=== PATIENT | female | born 1970 | race Caucasian/White ===

== ENCOUNTER 2019-12-17 09:41 | Outpatient (CLI) | payer BC, SELFPAY ==
--- NOTE | 2019-12-17 11:00 | NEURO_ITS ---
Patient Number: [id number] Impression: # Complains of numbness of hands. # Mild left Carpal Tunnel Syndrome. # Right median neuropathy above the wrist. # No ulnar neuropathy. # Normal needle/EMG exam. Nerve Conduction Studies Anti Sensory Summary Table Stim Site NR Peak (ms) P-T Amp (?V) Site1 Site2 Delta-P (ms) Dist (cm) Gianluca (m/s) Left Median Anti Sensory (2-3nd Digit) Wrist 3.3 67.9 Wrist 2-3nd Digit 3.3 14.0 42 Wrist 3.5 72.0 Wrist 2-3nd Digit 3.3 14.0 42 Right Median Anti Sensory (2-3nd Digit) Wrist 2.8 11.7 Wrist 2-3nd Digit 2.8 14.0 50 Wrist 3.5 7.5 Wrist 2-3nd Digit 2.8 14.0 50 Left Radial Anti Sensory (Base 1st Digit) Wrist 1.6 45.2 Wrist Base 1st Digit 1.6 0.0 Right Radial Anti Sensory (Base 1st Digit) Wrist 1.8 28.7 Wrist Base 1st Digit 1.8 0.0 Left Ulnar Anti Sensory (5th Digit) Wrist 2.4 73.1 Wrist 5th Digit 2.4 14.0 58 Right Ulnar Anti Sensory (5th Digit) Wrist 2.7 48.8 Wrist 5th Digit 2.7 14.0 52 Motor Summary Table Stim Site NR Onset (ms) O-P Amp (mV) Site1 Site2 Delta-0 (ms) Dist (cm) Gianluca (m/s) Left Median Motor (Abd Poll Brev) Wrist 4.5 3.5 Elbow Wrist 4.6 26.0 57 Elbow 9.1 3.4 Right Median Motor (Abd Poll Brev) Wrist 3.1 4.0 Elbow Wrist 7.0 26.0 37 Elbow 10.1 1.9 Left Ulnar Motor (Abd Dig Minimi) Wrist 2.7 10.4 A Elbow Wrist 5.0 27.0 54 A Elbow 7.7 8.3 Right Ulnar Motor (Abd Dig Minimi) Wrist 2.4 4.8 A Elbow Wrist 5.3 27.0 51 A Elbow 7.7 4.3 F Wave Studies NR F-Lat (ms) L-R F-Lat (ms) Left Median (Mrkrs) (Abd Poll Brev) 29.12 2.11 Right Median (Mrkrs) (Abd Poll Brev) 31.23 2.11 Left Ulnar (Mrkrs) (Abd Dig Min) 28.32 0.98 Right Ulnar (Mrkrs) (Abd Dig Min) 29.30 0.98 EMG Side Muscle Nerve Root Ins Act Fibs Amp Dur Recrt Comment Right 1stDorInt Ulnar C8-T1 Nml Nml Nml Nml Nml Right Ext Indicis Radial (Post Int) C7-8 Nml Nml Nml Nml Nml Right Ext Digitorum Radial (Post Int) C7-8 Nml Nml Nml Nml Nml Right BrachioRad Radial C5-6 Nml Nml Nml Nml Nml Right PronatorTeres Median C6-7 Nml Nml Nml Nml Nml Right Abd Poll Brev Median C8-T1 Nml Nml Nml Nml Nml Left 1stDorInt Ulnar C8-T1 Nml Nml Nml Nml Nml Left Ext Indicis Radial (Post Int) C7-8 Nml Nml Nml Nml Nml Left Ext Digitorum Radial (Post Int) C7-8 Nml Nml Nml Nml Nml Left BrachioRad Radial C5-6 Nml Nml Nml Nml Nml Left PronatorTeres Median C6-7 Nml Nml Nml Nml Nml Left Abd Poll Brev Median C8-T1 Nml Nml Nml Nml Nml MTDD
== END 2019-12-17 09:42 | disposition home or self-care (01) ==
LOC: ANHNEURO 09:44
PROVIDERS: PCP Family Medicine; Visit Provider Orthopaedic Surgery
DX: M25.531 Pain in right wrist (principal); G56.02 Carpal tunnel syndrome, left upper limb; G56.12 Other lesions of median nerve, left upper limb
CPT/HCPCS: 95886; 95911

== ENCOUNTER 2020-04-14 07:30 | Outpatient (CLI) | payer BC, SELFPAY ==
--- NOTE | 2020-04-14 | ECHO_ITS ---
Patient Info Name: Reta Krishnan Age: 49 years : 1970 Gender: Female Ht: 63 in Wt: 238 lbs BSA: 2.25 m2 HR: 78 bpm BP: 127 / 91 mmHg Heart Rhythm: Sinus Rhythm Technical Quality: Good Exam Date: 04/14/2020 7:49 AM Exam Location: [facility] Patient Status: Outpatient Admit Date: 04/14/2020 Staff Ordering Physician: LatrellTy MD Blood And Plasma Laboratory Assistant: Milli Austin RDCS Attending Provider: Bishnu, Ty Ledezma MD Referring Physician: Bishnu CAMPOS; Exam Type: CA echo doppler color flow Study Info Indications I10 - Essential (primary) hypertension Complete two-dimensional, color flow and Doppler transthoracic echocardiogram is performed. Strain analysis performed. Summary 1. Complete two-dimensional, color flow and Doppler transthoracic echocardiogram is performed. 2. Global longitudinal strain is borderline at -17 %. 3. Strain analysis performed. 4. Left ventricular chamber dimension is mildly enlarged. 5. Left ventricular systolic function is normal, estimated at 55-60%. 6. There is mildly increased left ventricular wall thickness. 7. The left ventricular diastolic function is grade I diastolic dysfunction. 8. Left atrial chamber dimension is mildly enlarged. 9. There is mild mitral valve regurgitation. 10. There is mild tricuspid valve regurgitation. Left Ventricle Left ventricular chamber dimension is mildly enlarged. Left ventricular systolic function is normal, estimated at 55-60%. There is mildly increased left ventricular wall thickness. The left ventricular diastolic function is grade I diastolic dysfunction. Global longitudinal strain is borderline at -17 %. Right Ventricle Right ventricular chamber dimension is normal. Right ventricular systolic function is normal. Left Atria Left atrial chamber dimension is mildly enlarged. Right Atria Right atrial chamber dimension is normal. Atrial Septum Intact interatrial septum visualized by color flow imaging. Aortic Valve The aortic valve is trileaflet. There is no aortic valve sclerosis. There is no aortic valve stenosis. There is trace aortic valve regurgitation. Pulmonic Valve The pulmonic valve is normal. There is no pulmonic valve stenosis. There is trace pulmonic regurgitation. Mitral Valve The mitral valve has thickened leaflets. There is no mitral valve stenosis. There is mild mitral valve regurgitation. Tricuspid Valve The tricuspid valve leaflets are normal. There is no significant tricuspid valve stenosis. There is mild tricuspid valve regurgitation. No pulmonary hypertension, estimated pulmonary arterial systolic pressure is 33 mmHg. Pericardium/Pleural The pericardium appears normal. There is no pericardial effusion. Inferior Vena Cava Normal inferior vena cava with >50% collapse upon inspiration consistent with normal right atrial pressure, 10 mmHg. Aorta The aortic root size at the sinus of Valsalva is normal. Left Ventricular Outflow Tract Name Value Normal LVOT 2D LVOT Diameter 2.0 cm LVOT Doppler LVOT Peak Gradient 5 mmHg
== END 2020-04-14 07:31 | disposition home or self-care (01) ==
PROVIDERS: PCP Family Medicine; Visit Provider Family Medicine
DX: I10 Essential (primary) hypertension (principal); I51.7 Cardiomegaly; R93.1 Abnormal findings on diagnostic imaging of heart and coronary circulation
CPT/HCPCS: 93306

== ENCOUNTER 2020-09-19 10:06 | Outpatient (CLI) | payer BC, SELFPAY ==
--- NOTE | ~2020-09-19 | MR_ITS ---
EXAMINATION: MR cervical spine wo con EXAM DATE: 09/19/2020 11:00 INDICATION: Cervicalgia, radiculopathy down both arms. Headaches. TECHNIQUE: Multi-sequential, multiplanar MR images of the cervical spine were obtained without contra st. Axial T2, axial T2 MERGE sequence. Sagittal T1, T2, T2 fat saturation images also obtained. Com parison is made to prior examination from 09/19/2020. FINDINGS: There is mild disc disease C6-7. Vertebral body and disc heights are well-maintained. The vertebral bodies are aligned in the AP dimension. The spinal cord signal intensity and intrinsic mo rphology is normal. Cervicomedullary junction is normal in appearance. There are no suspicious marrow signal abnormalities. Paraspinal soft tissue is unremarkable. Level by level evaluation: C2-C3: Disc does not extend beyond the endplate margin. Uncovertebral joint arthropathy: None. Facet joint arthropathy: Mild bilateral. Neural foraminal stenosis: No stenosis. Central canal stenosis: No stenosis. C3-C4: Disc does not extend beyond the endplate margin. Uncovertebral joint arthropathy: None. Facet joint arthropathy: Mild to moderate bilateral. Neural foraminal stenosis: No stenosis. Central canal stenosis: No stenosis. C4-C5: Disc does not extend beyond the endplate margin. Uncovertebral joint arthropathy: Mild left. Facet joint arthropathy: Moderate left, mild to moderate right. Neural foraminal stenosis: No stenosis. Central canal stenosis: No stenosis. C5-C6: Disc does not extend beyond the endplate margin. Uncovertebral joint arthropathy: Mild left. Facet joint arthropathy: Mild bilateral. Neural foraminal stenosis: No stenosis. Central canal stenosis: No stenosis. C6-C7: There is a mild diffuse disc bulge. Uncovertebral joint arthropathy: Mild to moderate left, mild right. Facet joint arthropathy: Mild bilateral. Neural foraminal stenosis: Mild left. Central canal stenosis: Mild. C7-T1: Disc does not extend beyond the endplate margin. Uncovertebral joint arthropathy: Mild left. Facet joint arthropathy: Mild to moderate left, mild right. Neural foraminal stenosis: Mild left. Central canal stenosis: No stenosis. It is difficult to appreciate any significant interval change compared to 2017. IMPRESSION: Mild to moderate cervical spondylosis as detailed above. Reviewed, dictated and finalized at location A.
--- NOTE | ~2020-09-19 | XR_ITS ---
EXAMINATION: XR thoracic spine 2V DATE: 09/19/2020 10:25 INDICATION: Thoracic back pain TECHNIQUE: Two views of the thoracic spine are obtained. COMPARISON: None. FINDINGS: There is mild S-shaped curvature of the thoracic spine. Bone alignment is normal. There is no fracture. The vertebral body heights are maintained. There is mild loss of intervertebral disc spa ce height at multiple levels in the thoracic spine. Small degenerative osteophytes project from the a nterior endplates of multiple vertebral bodies. IMPRESSION: 1. Mild thoracic spondylosis without acute findings. Reviewed, dictated and finalized at location F.
--- NOTE | ~2020-09-19 | MR_ITS ---
EXAMINATION: MR lumbar spine wo con EXAM DATE: 09/19/2020 11:12 INDICATION: Low back pain. Lumbar radiculopathy. TECHNIQUE: Multi-sequential, multiplanar MR images of the lumbar spine were obtained without contrast . Sagittal T1, T2, T2 fat saturation images. Axial T2 weighted images. There is no prior study for comparison. FINDINGS: Moderate loss of the L5-S1 disc height with 2 mm retrolisthesis. Lumbar vertebral body heig hts and disc heights otherwise maintained and aligned. The conus medullaris terminates at the T12-L1 level and has normal signal intensity and morphology. Level by level evaluation: T12-L1: Disc does not extend beyond the endplate margin. Facet arthropathy: Mild bilateral. Neural foraminal stenosis: No stenosis. Central canal stenosis: No stenosis. L1-L2: Disc does not extend beyond the endplate margin. Facet arthropathy: Mild bilateral. Neural foraminal stenosis: No stenosis. Central canal stenosis: No stenosis. L2-L3: There is a mild diffuse disc bulge. Facet arthropathy: Mild. Neural foraminal stenosis: No stenosis. Central canal stenosis: No stenosis. L3-L4: There is a mild diffuse disc bulge. Facet arthropathy: Mild to moderate. Neural foraminal stenosis: Mild left. Central canal stenosis: Mild. L4-L5: There is a mild to moderate diffuse disc bulge. Facet arthropathy: Moderate. Neural foraminal stenosis: Mild to moderate bilateral. Central canal stenosis: Moderate. L5-S1: There is a mild to moderate diffuse disc bulge. Facet arthropathy: Mild to moderate. Neural foraminal stenosis: Moderate left, mild to moderate right. Central canal stenosis: Mild to moderate. IMPRESSION: Mild to moderate lower lumbar predominant spondylosis. Reviewed, dictated and finalized at location A.
== END 2020-09-19 10:07 | disposition home or self-care (01) ==
PROVIDERS: PCP Family Medicine; Visit Provider Nurse Practitioner Family
DX: M47.26 Other spondylosis with radiculopathy, lumbar region (principal); M47.892 Other spondylosis, cervical region; M47.894 Other spondylosis, thoracic region
CPT/HCPCS: 72070; 72141; 72148

== ENCOUNTER 2024-02-29 14:12 | Outpatient (CLI) | payer BC, SELFPAY ==
[2024-02-29 14:48] LABS: Magnesium 2.2 mg/dL (1.6-2.3); Phosphorus 3.8 mg/dL (2.5-4.5)
[2024-02-29 16:25] LABS: Vitamin D 25 Hydroxy 62.8 ng/mL
== END 2024-02-29 14:13 | disposition home or self-care (01) ==
LOC: ANHLAB 14:13
PROVIDERS: Visit Provider Internal Medicine
DX: E03.9 Hypothyroidism, unspecified (principal)
CPT/HCPCS: 36415; 82306; 83735; 83970; 84100

== ENCOUNTER 2024-03-08 12:04 | Outpatient (CLI) | payer BC, SELFPAY ==
[2024-03-08 13:10] LABS: Creatinine Urine 52.8 mg/dL
[2024-03-08 13:47] LABS: Creatinine 24 Hour Urine 1.3 gm/24 (0.8-1.8); Total Volume 24 Hour Urine 2525 ml
[2024-03-12 11:33] LABS: Total Volume 2525 mL
== END 2024-03-08 12:05 | disposition home or self-care (01) ==
LOC: ANHLAB 12:05
PROVIDERS: Visit Provider Internal Medicine
DX: E03.9 Hypothyroidism, unspecified (principal)
CPT/HCPCS: 81050; 82340; 82570

== ENCOUNTER 2024-08-29 11:43 | Outpatient (CLI) | payer BC, SELFPAY ==
--- OUTSIDE RECORDS SUMMARY | 2024-08-29 12:33 | XMS_ITS | Encounter Summary ---
Author Organization [facility] Address [address] [place] [address] Care Team Providers Care Tool And Die Repair Name Role Phone Papo Oleary Primary Care Provider + Encounter Details Date Type Department Care Team (Late Contact Info) Description 05/14/2024 FTL SOLAR Message [facility] Patient Accounts [address] [place] [address] [facility] Action Needed Social History Tobacco Use Types Packs/Day Years Used Date Smoking Tobacco: Never Smokeless Tobacco: Never Alcohol Use Standard Drinks/Week Comments Not Currently 0 (1 standard drink = 0.6 oz pur e alcohol) Comments No Sex and Gender Information Value Date Recorded Sex Assigned at Female 09/15/2023 1:19 PM CDT 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 Gender Identity Female 09/15/2023 1:19 PM CDT Sexual Orientation Straight 09/15/2023 1: 19 PM CDT documented as of this encounter Plan of Treatment Upcoming Encounters Date Type Department Care Team (Late Contact Info) Description 01/02/2025 2:00 PM CDT Office Visit [facility] Medical Group Multispecialty Care - [facility] [address] [facility], [address] [place] [phone] Aníbal Paredes MD [address] [place] [address] 01/22/2025 1:40 PM CDT Office Visit [facility] Medical Group [facility] - [place] [address] [place] [phone] Dorina Ramírez MD [address] [place] [address] documented as of this encounter Visit Diagnoses Not on filedocumented in this encounter Care Teams Tool And Die Repair Relationship Specialty Start Date End Date Papo Oleary PA [facility] [place] [address] PCP - General PHYSICIAN RELINER 12/25/23 documented as of this encounter
--- OUTSIDE RECORDS SUMMARY | 2024-08-29 12:33 | XMS_ITS | Encounter Summary ---
Author Organization [facility] Address [address] [place] [address] Care Team Providers Care Research Study Assistant Name Role Phone None, Provider Primary Care Provider Papo Jasmine Primary Care Provider + Encounter Details Date Type Department Care Team (Late st Contact Info) Description 10/04/2023 MyChart Message Enc [facility] [address] [phone] Dorina Ramírez MD [address] [place] [phone] MRIs Social History Tobacco Use Types Packs/Day Years Used Date Smoking Tobacco: Never Smokeless Tobacco: Never Alcohol Use Standard Drinks/Week Comments Not Currently 0 (1 standard drink = 0.6 oz pur e alcohol) Comments Unknown Sex and Gender Information Value Date Recorded Sex Assigned at Female 09/15/2023 1:19 PM CDT 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 Gender Identity Female 09/15/2023 1:19 PM CDT Sexual Orientation Straight 09/15/2023 1: 19 PM CDT documented as of this encounter Plan of Treatment Upcoming Encounters Date Type Department Care Team (Late st Contact Info) Description 01/02/2025 2:00 PM CDT Office Visit [facility] Multispecialty Care - [facility] [address] [facility], [address] [place] [phone] Aníbal Paredes MD 3 [place] [address] 01/22/2025 1:40 PM CDT Office Visit [facility] Medical [facility] Neurology Specialty Clinic - [address] [phone] Dorina Ramírez MD 3 [place] [address] documented as of this encounter Visit Diagnoses Not on filedocumented in this encounter Care Teams Research Study Assistant Relationship Specialty Start Date End Date None, Provider, PCP - General UNKNOWN PHYSICIAN SPECIALTY 08/25/23 12/24/23 Papo Oleary PA [facility] [place] [phone] PCP - General PHYSICIAN SLUBBER FRAME CHANGER 12/25/23 documented as of this encounter
--- OUTSIDE RECORDS SUMMARY | 2024-08-29 12:33 | XMS_ITS | Encounter Summary ---
Author Organization [facility] Address [address] [place] [address] Care Team Providers Care Sample Collector Name Role Phone Papo Oleary Primary Care Provider + Encounter Details Date Type Department Care Team (Late Contact Info) Description 05/20/2024 Prep for Procedure [facility] [place] [address] [phone] Ariane Ball MD [address] [place], [place] [phone] Social History Tobacco Use Types Packs/Day Years Used Date Smoking Tobacco: Never Smokeless Tobacco: Never Alcohol Use Standard Drinks/Week Comments Not Currently 0 (1 standard drink = 0.6 oz pur e alcohol) Comments No Sex and Gender Information Value Date Recorded Sex Assigned at Female 09/15/2023 1:19 PM CDT 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, [address] [place] [phone] Aníbal Paredes MD 3 [place] [address] 01/22/2025 1:40 PM CDT Office Visit [facility] Medical Group Neu[facility] Special[facility] Clinic [address] [phone] Dorina Ramírez MD 3 [place] [address] documented as of this encounter Visit Diagnoses Not on filedocumented in this encounter Care Teams Sample Collector Relationship Specialty Start Date End Date Papo Oleary PA [facility] [place] [address] PCP - General PHYSICIAN HOSPICE BEREAVEMENT COORDINATOR 12/25/23 documented as of this encounter
--- OUTSIDE RECORDS SUMMARY | 2024-08-29 12:33 | XMS_ITS | Encounter Summary ---
Author Organization [facility] Address [address] [place] [address] Care Team Providers Care Flyer Repairer Name Role Phone Papo Oleary Primary Care Provider + Encounter Details Date Type Department Care Team (Latest Contact Info) Description 07/29/2024 AdExtent Message Enc [facility] [place] [address] [phone] [facility]ost[facility], [facility] Provider [facility] Social History Tobacco Use Types Packs/Day Years Used Date Smoking Tobacco: Never Smokeless Tobacco: Never Alcohol Use Standard Drinks/Week Comments Not Currently 0 (1 standard drink = 0.6 oz pur e alcohol) Comments No Sex and Gender Information Value Date Recorded Sex Assigned at Female 09/15/2023 1:19 PM CDT 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 Gender Identity Female 09/15/2023 1:19 PM CDT Sexual Orientation Straight 09/15/2023 1: 19 PM CDT documented as of this encounter Plan of Treatment Upcoming Encounters Date Type Department Care Team (Late st Contact Info) Description 01/02/2025 2:00 PM CDT Office Visit [facility] Medical [facility] Multispecialty Care - [facility] [address] [facility], [address] [place] [phone] Aníbal Paredes MD 3 [place] [address] 01/22/2025 1:40 PM CDT Office Visit [facility] Medical Group Neurology Specialty Clinic - [address] [phone] Dorina Ramírez MD 3 [place] [address] documented as of this encounter Visit Diagnoses Not on filedocumented in this encounter Care Teams Flyer Repairer Relationship Specialty Start Date End Date Papo Oleary PA [facility] [place] [phone] PCP - General PHYSICIAN VULNERABILITY RESEARCHER 12/25/23 documented as of this encounter
--- OUTSIDE RECORDS SUMMARY | 2024-08-29 12:33 | XMS_ITS | Encounter Summary ---
Author Organization [facility] Address [address] [place] [address] Care Team Providers Care Lane Marker Installer Name Role Phone Papo Oleary Primary Care Provider + Encounter Details Date Type Department Care Team (Late st Contact Info) Description 05/20/2024 SuddenValueshart Message Enc [facility] Interventional [facility] [place] [address] [phone] Ariane Ball MD Three [facility] [address] [place], [place] [phone] Neck/Upper Back Social History Tobacco Use Types Packs/Day Years Used Date Smoking Tobacco: Never Smokeless Tobacco: Never Alcohol Use Standard Drinks/Week Comments Not Currently 0 (1 standard drink = 0.6 oz pur e alcohol) Comments No Sex and Gender Information Value Date Recorded Sex Assigned at Female 09/15/2023 1:19 PM CDT 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 Gender Identity Female 09/15/2023 1:19 PM CDT Sexual Orientation Straight 09/15/2023 1: 19 PM CDT documented as of this encounter Plan of Treatment Upcoming Encounters Date Type Department Care Team (Late st Contact Info) Description 01/02/2025 2:00 PM CDT Office Visit [facility] Medical Group Multispecialty Care - [facility] [address] [facility], [address] [place] [phone] Aníbal Paredes MD 3 [place] [address] 01/22/2025 1:40 PM CDT Office Visit [facility] Medical Group Neurology Specialty Clinic [address] [phone] Dorina Ramírez MD 3 [place] [address] documented as of this encounter Visit Diagnoses Not on filedocumented in this encounter Care Teams Lane Marker Installer Relationship Specialty Start Date End Date Papo Oleary PA [facility] [place] [address] PCP - General PHYSICIAN ENTRY PROCESSOR 12/25/23 documented as of this encounter
--- OUTSIDE RECORDS SUMMARY | 2024-08-29 12:33 | XMS_ITS | Clinical Summary ---
Author Organization [facility] Address [address] [place] [address] Phone Care Team Providers Care Potato Chip Fryer Name Role Phone Ty Sams MD Primary Care Provider [phone] Allergies No known active allergies Medications ergocalciferol (VITAMIN D2) 50,000 unit capsule Take 50,000 Units by mouth every 7 days. Active OTHER Provider please include Medication name, dose, route and frequency . Active ascorbic acid, vitamin C, (VITAMIN C) 500 mg tablet Take 500 mg by mouth daily. Active pregabalin (LYRICA) 100 mg Capsule Take 200 mg by mouth 3 times daily with meals . Active celecoxib (CeleBREX) 200 mg capsule Take 200 mg by mouth 2 times daily. Active diclofenac sodium (VOLTAREN) 1 % gel Apply to affected area 4 times daily. Activ e phentermine (ADIPEX P) 37.5 mg tablet TAKE 1 TABLET BY MOUTH ONCE DAILY 06/28/19 20 Active traMADol (ULTRAM) 50 mg tablet TAKE 1 TO 2 TABLETS BY MOUTH EVERY 6 HOURS NEEDED 06/08/20 19 Active cyclobenzaprin e (FLEXERIL) 5 mg Tablet cyclobenzaprine 5 mg tablet Active hydroCHLOROthi azide (MICROZIDE) 12.5 mg capsule Take 12.5 mg by mouth daily. Active tapentadoL (Nucynta) 100 mg tablet Take 50 mg by mouth. 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 Primary hypothyroidism 12/01/2017 Vitamin D deficiency 12/01/2017 Morbid obesity with body mass index of 40.0-49.9 12/01/2017 Encounters Date Type Department Care Team Description 07/30/2024 External Device Data [facility] ABSTRACTION Provider, Abstract 07/03/2024 External Device Data [facility] ABSTRACTION Provider, Abstract 07/03/2024 External Device Data [facility] ABSTRACTION Provider, Abstract 06/18/2024 External Device Data [facility] ABSTRACTION Provider, Abstract from Last 3 Months Family History Medical History Relation Name Comments High Cholesterol Father Hypertension Father Other Father chf Other Sister hypothyroid Relation Name Status Comments Father Sister Alive Social History Tobacco Use Types Packs/Day Years Used Date Smoking Tobacco: Never Smokeless Tobacco: Never Alcohol Use Standard Drinks/Week Comments Yes 0 (1 standard drink = 0.6 oz pur e alcohol) occasional Comments Unknown Sex and Gender Information Value Date Recorded Sex Assigned at Not on file 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 Gender Identity Not on file Sexual Orientation Not on file Last Filed Vital Signs Vital Sign Reading Time Taken Comments Blood Pressure 124/80 01/20/2020 10:32 AM CDT Pulse 84 01/20/2020 10:32 AM CDT Temperature - - Respiratory Rate - - Oxygen Saturation 96% 11/30/2018 9:45 AM CDT Inhaled Oxygen Concentration - - Weight 104.3 kg (230 lb) 01/20/2020 10:32 AM CDT Height 160 cm (5' 3 ) 01/20/2020 10:32 AM CDT Body Mass Index 40.74 01/20/2020 10:32 AM CDT Plan of Treatment Health Maintenance Due Date Last Done Comments Pre-Diabetes and Diabetes Screening 1970 DTAP/TDAP/TD VACCINES (1 - Tdap) 1987 HEPATITIS B VACCINES (1 of 3 - 19+ 3-dose series) 07/14 PAP SMEAR 1998 BREAST CANCER SCREENING 2008 COLORECTAL SCREENING 2013 Colorectal Cancer Screening 2013 FIT-DNA Q 3 years 2013 FIT/FOBT Q 1 year 2013 Flex Sig/CT Colonography Q 5 years 2013 ZOSTER VACCINE (1 of 2) 2018 INFLUENZA VACCINE (#1) 2024 Insurance [employer] Care Teams Potato Chip Fryer Relationship Specialty Start Date End Date Ty Sams MD PCP - General Family Practice 12/01/17
--- OUTSIDE RECORDS SUMMARY | 2024-08-29 12:33 | XMS_ITS | Clinical Summary ---
Author Organization [facility] Address [address] [place] [address] Care Team Providers Care Pulverizing And Sifting Operator Name Role Phone Papo Oleary Primary Care Provider + Allergies No known active allergies Medications calcium, elemental, 600 MG tablet Take 2 tablets (1,200 mg total) by mouth daily. Active celecoxib (CELEBREX) 200 MG capsule daily. Active Cetirizine HCl (ZYRTEC ALLERGY) 10 MG Cap Active vitamin D2, ergocalciferol, (DRISDOL) 1.25 mg capsule Take 1 capsule (50,000 Units total) by mouth once a week. Active folic acid (FOLVITE) 1 MG tablet daily. Active hydroCHLOROthia zide (MICROZIDE) 12.5 MG capsule daily. Acti ve levothyroxine (SYNTHROID) 100 MCG tablet Active Magnesium 500 MG Tab Active omeprazole (PRILOSEC) 20 MG capsule Active pramipexole (MIRAPEX) 0.125 MG tablet Active Tapentadol HCl (NUCYNTA) 100 MG Tab Take 1 tablet by mouth as needed. Daily prn Active tiZANidine (ZANAFLEX) 4 MG tablet Active vitamin C (ASCORBIC ACID) 1000 MG tablet Take 1 tablet (1,000 mg total) by mouth daily. Active liothyronine (CYTOMEL) 5 MCG Tab Take 2 tablets (10 mcg total) by mouth daily. Active Turmeric 500 MG Cap every 8 (eight) hours. Active gabapentin (NEURONTIN) 600 MG tablet Take 1 tablet (600 mg total) by mouth 3 (three) times daily. Active Active Problems Problem Noted Date Diagnosed Date Cervical facet joint syndrome 01/29/2024 Cervical radiculopathy 10/08/2023 Lumbar radiculitis 10/08/2023 Encounters Date Type Department Care Team Description 07/29/2024 MyChart Message Enc [facility] [place] [place] [address] [id number] Jostin [facility] Provider PAIN MANAGEMENT CLINIC 07/09/2024 Prep for Procedure [facility] [place] [address] [id number] Lila Patricia, SOFIYA 07/08/2024 Telephone [facility] [place] [address] [id number] Ariella Campo RN Follow Up (/) 07/05/2024 10:00 AM INTERNET SECURITY SPECIALIST Office Visit [facility] Neu[facility] Specialty Clinic [address] [phone] Dorina Ramírez MD Follow Up (Lumbar radiculitis) 07/05/2024 Travel from Last 3 Months Family History Medical History Relation Comments Stroke Maternal Grandmother Diabetes Sister Relation Status Comments Maternal Grandmother Sister Social History Tobacco Use Types Packs/Day Years Used Date Smoking Tobacco: Never Smokeless Tobacco: Never Tobacco Cessation:Counseling Given: No Alcohol Use Standard Drinks/Week Comments Not Currently 0 (1 standard drink = 0.6 oz pur e alcohol) Comments No Sex and Gender Information Value Date Recorded Sex Assigned at Female 09/15/2023 1:19 PM CDT Legal Sex Female 12:13 PM INTERNET SECURITY SPECIALIST Gender Identity Female 09/15/2023 1:19 PM CDT Sexual Orientation Straight 09/15/2023 1: 19 PM CDT Last Filed Vital Signs Vital Sign Reading Time Taken Comments Blood Pressure 148/96 07/05/2024 9:59 AM INTERNET SECURITY SPECIALIST Pulse 74 07/05/2024 9:59 AM INTERNET SECURITY SPECIALIST Temperature 36.5 C (97.7 F) 03/04/2024 12:51 PM CDT Respiratory Rate 18 03/04/2024 1:18 PM CDT Oxygen Saturation 97% 07/05/2024 9:59 AM INTERNET SECURITY SPECIALIST Inhaled Oxygen Concentration - - Weight 105.7 kg (233 lb) 07/05/2024 9:59 AM INTERNET SECURITY SPECIALIST Height 160 cm (5' 3 ) 07/05/2024 9:59 AM INTERNET SECURITY SPECIALIST Body Mass Index 41.27 07/05/2024 9:59 AM INTERNET SECURITY SPECIALIST Plan of Treatment Upcoming Encounters Date Type Department Care Team (Late st Contact Info) Description 01/02/2025 2:00 PM CDT Office Visit [facility] Multispecialty Care - [facility] [address] [facility], [address] [place] [address] Aníbal Paredes MD [address] [place] [address] 01/22/2025 1:40 PM CDT Office Visit [facility] Neurology Specialty Clinic - [address] [phone] Dorina Ramírez MD [address] [place] [address] Health Maintenance Due Date Last Done Comments Cervical Cancer Screening Pa p Smear (Age 30 to 64) Every 3 Years 1968 Colorectal Cancer Screening Colonoscopy (10 Years) 1968 Annual Physical 1971 Hepatitis C 1986 DTaP, Tdap and Td Vaccines ( 1 - Tdap) 1987 Hepatitis B Vaccines (1 of 3 - 19+ 3-dose series) 1987 Cervical Cancer Screening Pa p with HPV Testing (Age 30 to 64) Every 5 Years 1998 Cervical Cancer Screening with HPV 1998 Mammogram Screening 2008 Zoster Vaccines (1 of 2) 2018 COVID-19 Vaccine ( - 2023-2 5 season) 2024 Influenza Adult (#1) 2024 PHQ-2 (Physician Proctor) 06/12/2024 Meningococcal B Vaccine Aged Out No l onger eligible based on patient's age to complete this topic Meningococcal Vaccine Aged Out No karey ad eligible based on patient's age to complete this topic Pneumococcal Vaccine: Pediat rics (0 to 5 Years) and At-Risk Patients (6 to 64 Years) Aged Out No longer eligible b ased on patient's age to complete this topic RSV Immunizations Under 20 Months Aged Out No longer eligible based on patient's age to complete this topic Insurance [facility] Care Teams Pulverizing And Sifting Operator Relationship Specialty Start Date End Date Papo Oleary PA [facility] [place] [phone] PCP - General PHYSICIAN REFINERY OPERATOR VISBREAKING 12/25/23
--- OUTSIDE RECORDS SUMMARY | 2024-08-29 12:33 | XMS_ITS | Patient Health Record ---
Author Organization [facility] Address [address] [place], [place] [address] Care Team Providers Care Concrete Grinder Operator Name Role Phone Gordy Oleary Primary Care Provider Paige Allison Unavailable [phone] Gely Trammell Unavailable [phone] ALLERGIES No Known Allergies RESULTS Component Value Reference Range Notes AST (SGOT) Reviewed date:02/06/2024 10:42:13 AM Interpretation: Performing Lab:[facility] Phone - [phone], Director - [facility] Notes/Report: AST (SGOT) 28 0-40 IU/L Creatinine, Serum Reviewed date:02/06/2024 10:42:13 AM Interpretation: Performing Lab:[facility] Phone - [phone], Director - [facility] Notes/Report: Creatinine 0.71 0.57-1.00 mg/dL eGFR 100 >59 mL/min/1.73 ALT (SGPT) Reviewed date:02/06/2024 10:42:13 AM Interpretation: Performing [facility], Phone - [phone], Director - [facility] Notes/Report: ALT (SGPT) 42 0-32 IU/L CBC With Differential/Platel et Reviewed date:02/06/2024 10:42:13 AM Interpretation: Performing Lab[facility], Phone - [phone], Director - [facility] Notes/Report: WBC 6.0 3.4-10.8 x10E3/uL RBC 4.85 3.77-5.28 x10E6/uL Hemoglobin 13.2 11.1-15.9 g/dL Hematocrit 40.2 34.0-46.6 % MCV 83 79-97 fL MCH 27.2 26.6-33.0 pg MCHC 32.8 31.5-35.7 g/dL RDW 13.5 11.7-15.4 % Platelets 314 150-450 x10E3/uL Neutrophils 64 Not Estab. % Lymphs 26 Not Estab. % Monocytes 7 Not Estab. % Eos 2 Not Estab. % Basos 1 Not Estab. % Immature Cells Neutrophils (Absolute) 3.8 1.4-7.0 x10E3/uL Lymphs (Absolute) 1.5 0.7-3.1 x10E3/uL Monocytes(Absolute) 0.4 0.1-0.9 x10E3/uL Eos (Absolute) 0.1 0.0-0.4 x10E3/uL Baso (Absolute) 0.1 0.0-0.2 x10E3/uL Immature Granulocytes 0 Not Estab. % Immature Grans (Abs) 0.0 0.0-0.1 x10E3/uL NRBC Hematology Comments: AST (SGOT) Reviewed date:08/06/2024 07:35:11 AM Interpretation: Performing Lab:[facility] [place], [address] [place] [address], Phone - [phone], Director - [facility] Notes/Report: AST (SGOT) 16 0-40 IU/L Creatinine, Serum Reviewed date:08/06/2024 07:35:11 AM Interpretation: Performing Lab[facility] [address] [place] [address], Phone - [phone], Director - [facility] Notes/Report: Creatinine 0.65 0.57-1.00 mg/dL eGFR 103 >59 mL/min/1.73 ALT (SGPT) Reviewed date:08/06/2024 07:35:11 AM Interpretation: Performing Lab:[facility], [address] [facility], Phone - [phone], Director - [place] Notes/Report: ALT (SGPT) 24 0-32 IU/L CBC With Differential/Platel et Reviewed date:08/06/2024 07:35:11 AM Interpretation: Performing Lab:[facility] [place], [address] [facility], [place], Phone - [phone], Director - [place] Notes/Report: WBC 8.3 3.4-10.8 x10E3/uL RBC 5.06 3.77-5.28 x10E6/uL Hemoglobin 13.4 11.1-15.9 g/dL Hematocrit 41.1 34.0-46.6 % MCV 81 79-97 fL MCH 26.5 26.6-33.0 pg MCHC 32.6 31.5-35.7 g/dL RDW 13.6 11.7-15.4 % Platelets 331 150-450 x10E3/uL Neutrophils 72 Not Estab. % Lymphs 20 Not Estab. % Monocytes 5 Not Estab. % Eos 1 Not Estab. % Basos 1 Not Estab. % Immature Cells Neutrophils (Absolute) 6.0 1.4-7.0 x10E3/uL Lymphs (Absolute) 1.6 0.7-3.1 x10E3/uL Monocytes(Absolute) 0.4 0.1-0.9 x10E3/uL Eos (Absolute) 0.1 0.0-0.4 x10E3/uL Baso (Absolute) 0.1 0.0-0.2 x10E3/uL Immature Granulocytes 1 Not Estab. % Immature Grans (Abs) 0.0 0.0-0.1 x10E3/uL NRBC Hematology Comments: REASON FOR REFERRAL No Information MEDICATIONS Medication SIG (Take, Route, Frequency, Duration) Notes Start Date End Date Status traMADol 50 mg 1-2 tab(s) orally every 6 hours Active TiZANidine Hydrochloride 2 mg TAKE 1 TO 2 TABLETS BY MOUTH TWICE DAILY Active Nucynta 100 mg 1 tab(s) orally ever y 6 hours Active turmeric 500 mg 1 cap(s) orally thre e times a day Active Voltaren Gel - for upper bod y joint 1% APPLY 2 GRAMS PER JOINT TOPICALLY (HANDS/KNEES) FOUR TIMES DAILY Active gabapentin 300 mg 2 cap(s) orally 3 times a day Active celecoxib 200 mg 1 cap(s) orally once a day Active Vitamin D2 (obsolete) 50,000 intl units 1 cap(s) orally bid a week Active levothyroxine 100 mcg (0.1 mg) 1 tab(s) orally once a day Active hydroCHLOROthiazide 12.5 mg 1 cap(s) ora lly once a day Active Tylenol Active omeprazole 20 mg orally Act mark liothyronine 5 mcg 1 tab(s) orally once a day Active Calcium Active losartan Active folic acid 1 mg 1 tab(s) orally once a day Active SOCIAL HISTORY Tobacco Use: Social History Observation Description Date Details (start date - stop date) Never Smoker NA - NA Sex Assigned At : Social History Observation Description Sex Assigned At Unknown Tobacco Use: Question Answer Notes Smoking Status nonsmoker PROBLEMS Problem Type ICD Code Onset Dates Problem Status W/U Status Risk SNOMED Code Notes Problem Other penitentiary (current) drug therapy (Z79.899) Active confirmed 497256641 Problem Vitamin D deficiency (E55.9) Active confirmed Vitamin D deficiency (98144970) Problem Fibromyalgia (M79.7) Active confirmed 503510679 Problem Primary generalized (osteo)arthritis (M15.0) Active confirmed 355492349 Problem Never smoked cigarettes (Z78.9) Active confirmed 607564364 Problem Degenerative disc disease, lumbar (M51.36) Active confirmed 38636737 Problem 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) Active confirmed 81940502 Problem Paresthesia (R20.2) Active confirmed 27309348 Problem 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) Active confirmed 579284053 Problem Knee osteoarthritis (M17.9) Active confirmed Osteoarthritis of knee (412634592) Problem Fatigue, unspecified type (R53.83) Active confirmed 61226280 Problem Cervical neck pain with evidence of disc disease (M50.90) Active confirmed 828625620 VITAL SIGNS Heart Rate 79 /min 08/05/2024 Blood pressure diastolic 88 mm Hg 08/05/2024 Height 63 in 08/05/2024 Blood pressure systolic 127 mm Hg 08/05/2024 Weight 245 lbs 08/05/2024 BMI 43.40 kg/m2 08/05/2024 PROCEDURES Procedure Date Ordered Date Performed Result Body Sit e Joint Injection - knee, left 02/05/2024 N/A Joint Injection - knee, right 02/05/2024 N/A Joint Injection - knee, right 08/05/2024 N/A Encounters Encounter Location Date Provider Diagnosis [facility] [address] [place] [address], [address] [id number] 02/05/2024 Gely Cole Primary generalized (osteo)arthritis M15.0 ; Pain, joint, knee, right M25.561 ; Pain, joint, knee, left M25.562 ; Other penitentiary (current) drug therapy Z79.899 ; Fibromyalgia M79.7 ; Vitamin D deficiency E55.9 ; Fatigue, unspecified type R53.83 and Lee's thyroiditis E06.3 [facility] [address] [place] [address], [address] [id number] 08/05/2024 Gely Kelsey Primary generalized (osteo)arthritis M15.0 ; Pain, joint, knee, right M25.561 ; Pain, joint, knee, left M25.562 ; Other termite renewal inspector (current) drug therapy Z79.899 ; Fibromyalgia M79.7 ; Vitamin D deficiency E55.9 ; Fatigue, unspecified type R53.83 and Lee's thyroiditis E06.3 [facility] [address] [place] [address], [address] [id number] 02/06/2024 Paige Fuchs ASSESSMENTS Encounter Date Diagnosis Assessment Notes Treatment Notes Treatment Clinical Notes 02/05/2024 Pain, joint, knee, right (ICD-10 - M25.561) 02/05/2024 Primary generalized (osteo)arthritis (ICD-10 - M15.0) 08/05/2024 Pain, joint, knee, right (ICD-10 - M25.561) 08/05/2024 Primary generalized (osteo)arthritis (ICD-10 - M15.0) 02/05/2024 Pain, joint, knee, left (ICD-10 - M25.562) 08/05/2024 Pain, joint, knee, left (ICD-10 - M25.562) 02/05/2024 Other penitentiary (current) drug therapy (ICD-10 - Z79.899) 08/05/2024 Other penitentiary (current) drug therapy (ICD-10 - Z79.899) 02/05/2024 Fibromyalgia (ICD-10 - M79.7) 08/05/2024 Fibromyalgia (ICD-10 - M79.7) 02/05/2024 Vitamin D deficiency (ICD-10 - E55.9) 08/05/2024 Vitamin D deficiency (ICD-10 - E55.9) 02/05/2024 Fatigue, unspecified type (ICD-10 - R53.83) 08/05/2024 Fatigue, unspecified type (ICD-10 - R53.83) 02/05/2024 Lee's thyroiditis (ICD-10 - E06.3) 08/05/2024 Lee's thyroiditis (ICD-10 - E06.3) PLAN OF TREATMENT Pending Test Test Name Order Date X ray : Spines, lumbar- outside order X ray : Spines, lumbar- outside order AST (SGOT) 05/23/2022 AST (SGOT) 08/02/2021 Creatinine, Serum 05/23/2022 ALT (SGPT) 05/23/2022 ALT (SGPT) 08/02/2021 CBC With Differential/Platelet Sed Rate - Westergren 05/23/2022 C-Reactive Protein, Quant 05/23/2022 VITAMIN D, 25-HYDROXY, LC/MS/MS 05/23/20 22 Joint Injection - knee, left 08/23/2023 Joint Injection - knee, left 02/05/2024 X ray : Hand left- outside order 018 X ray : Hand right- outside order 2017 Joint Injection - knee, right 08/23/2023 Joint Injection - knee, right 05/23/2018 Joint Injection - knee, right 02/05/2024 Joint Injection - knee, right 08/05/2024 Inj-Toradol 05/23/2022 X ray : Knee, right 3 views- outside ord er 05/23/2018 X ray : Knee, right 3 views- outside ord er 08/07/2023 X ray : Knee, left, 3 views- outside ord er 08/07/2023 X ray : Knee, left, 3 views- outside ord er 05/23/2018 X ray : Hip, left- outside order 019 X ray : Hip, right- outside order 2018 X ray : Foot Left- outside order 018 X ray : Foot Right- outside order 2017 Lab slip given 05/23/2022 -Xray slip given 05/23/2018 -Xray slip given 07/17/2017 -Xray slip given 06/26/2017 X ray : Knee, right 2 views- outside ord er 06/26/2017 X ray : Knee, left 2 views- outside orde r 06/26/2017 PT Evaluate and treat 01/31/2022 NCS : Lower Extremities, Right 8 NCS : Upper Extremities, Right 8 Myofacial release 08/22/2018 Next Appt Details Provider Name:Gely Trammell, 0 02/03/2025 10:20:00 AM, [address] 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
[2024-08-29 13:03] LABS: Hematocrit 42.9 % (37.0-47.0); Hemoglobin 13.8 g/dL (12.0-15.0); Mean Corpuscular HGB Conc 32.2 g/dl (32-36); Mean Corpuscular Hemoglobin 27.2 pg (26-34); Mean Corpuscular Volume 84.6 fl (80-100); Mean Platelet Volume 9.5 fl (7.4-10.4); Platelet Count Result 299 k/mm3 (150-375); Red Blood Count 5.07 M/mm3 (4.2-5.4); Red Cell Distribution Width 13.2 % (11.5-14.5); White Blood Count 6.5 K/mm3 (4.5-10.0)
[2024-08-29 13:12] LABS: Hemoglobin A1C 5.3 % (<5.7)
[2024-08-29 13:23] LABS: Alanine Aminotransferase 30 U/L (6-35); Albumin Level 4.6 g/dL (3.5-5.1); Alkaline Phosphatase 78 U/L (38-126); Anion Gap 6 mmol/L (4-12); Aspartate Amino Transferase 25 U/L (14-36); Bilirubin,Total 0.7 mg/dL (0.2-1.3); Blood Urea Nitrogen 15 mg/dL (7-17); Calcium 10.5 mg/dL (8.4-10.2); Carbon Dioxide 34 mmol/L (22-30); Chloride 99 mmol/L (98-107); Cholesterol 177 mg/dL (0-200); Estimated Glomerular Filt Rate > 60; Glucose 89 mg/dL (65-110); HDL Direct 64 mg/dL; Potassium 4.2 mmol/L (3.4-5.0); Sodium 139 mmol/L (137-145); Triglycerides 74 mg/dL (<150)
[2024-08-29 13:34] LABS: LDL Cholesterol Direct 67 mg/dL
[2024-08-29 13:53] LABS: Thyroid Stimulating Hormone < 0.015 uIU/mL (0.465-4.680)
[2024-08-29 14:01] LABS: Free T4 Free Thyroxine 2.02 ng/dL (0.78-2.19); Vitamin D 25 Hydroxy 70.5 ng/mL
== END 2024-08-29 11:44 | disposition home or self-care (01) ==
LOC: ANHLAB 11:45
PROVIDERS: PCP Physician Assistant; Visit Provider Internal Medicine
DX: E03.9 Hypothyroidism, unspecified (principal); E53.8 Deficiency of other specified B group vitamins; E55.9 Vitamin D deficiency, unspecified; R53.83 Other fatigue
CPT/HCPCS: 36415; 80053; 80061; 82306; 82607; 83036; 84439; 84443; 85027

== ENCOUNTER 2024-09-04 09:37 | Outpatient (CLI) | payer BC, SELFPAY ==
--- NOTE | ~2024-09-04 | US_ITS ---
EXAMINATION: US thyroid DATE: 09/04/2024 09:50 INDICATION: Hypothyroidism TECHNIQUE: Multiple ultrasound images of the thyroid were obtained. COMPARISON: None. FINDINGS: The right thyroid lobe measures 4.7 x 1.4 x 1.9 cm. The left thyroid lobe measures 3.8 x 1.0 x 1.5 c m. No discrete nodules identified. There is heterogeneous echogenicity with coarsened echotexture an d increased vascular flow throughout the thyroid on color Doppler which could be seen in setting of t hyroiditis. IMPRESSION: 1. Heterogeneous thyroid with coarsened echotexture and increased vascular flow which could be seen i n the setting of thyroiditis. No discrete thyroid nodules. Reviewed, dictated and finalized at location B. IMPRESSION: 1. Heterogeneous thyroid with coarsened echotexture and increased vascular flow which could be seen in the setting of thyroiditis. No discrete thyroid nodules .
== END 2024-09-04 09:38 | disposition home or self-care (01) ==
LOC: GOSHIMG 09:38
PROVIDERS: PCP Physician Assistant; Visit Provider Internal Medicine
DX: E03.9 Hypothyroidism, unspecified (principal)
CPT/HCPCS: 76536

== ENCOUNTER 2024-10-07 11:49 | Outpatient (CLI) | payer BC, SELFPAY ==
[2024-10-07 12:23] LABS: Alanine Aminotransferase 25 U/L (6-35); Alkaline Phosphatase 75 U/L (38-126); Anion Gap 2 mmol/L (4-12); Aspartate Amino Transferase 21 U/L (14-36); Bilirubin,Total 0.6 mg/dL (0.2-1.3); Blood Urea Nitrogen 15 mg/dL (7-17); Calcium 9.1 mg/dL (8.4-10.2); Carbon Dioxide 33 mmol/L (22-30); Chloride 101 mmol/L (98-107); Estimated Glomerular Filt Rate > 60; Glucose 101 mg/dL (65-110); Sodium 136 mmol/L (137-145)
[2024-10-07 12:46] LABS: Free T4 Free Thyroxine 1.13 ng/dL (0.78-2.19)
--- OUTSIDE RECORDS SUMMARY | 2024-10-07 13:45 | XMS_ITS | Clinical Summary ---
Author Organization [facility] Address [address] [place] [address] Phone Care Team Providers Care Central Processing Technician Name Role Phone Ty Sams MD Primary Care Provider [phone] Allergies No known active allergies Medications ergocalciferol [...] on file Legal Sex Female 12:40 PM PACKAGING OPERATOR Gender Identity Not on file Sexual Orientation [...] of 3 - 19+ 3-dose series) 07/14 HPV/Cotest (21-29) 1989 CERVICAL CANCER SCREENING 1998 HPV/Cotest (30-65) 1998 PAP SMEAR 1998 BREAST CANCER SCREENING 2008 COLORECTAL SCREENING 2013 Colorectal Cancer Screening 2013 FIT-DNA Q 3 years 2013 FIT/FOBT Q 1 year 2013 Flex Sig/CT Colonography Q 5 years 2013 ZOSTER VACCINE (1 of 2) 2018 INFLUENZA VACCINE (#1) 2024 Insurance Care Teams Central Processing Technician Relationship Specialty Start Date End Date Ty Sams MD PCP - General Family Practice 12/01/17
--- OUTSIDE RECORDS SUMMARY | 2024-10-07 13:45 | XMS_ITS | Encounter Summary ---
Author Organization [facility] Address [address] [place] [address] Care Team Providers Care Hand Stitcher Name Role Phone None, Provider Primary Care Provider Papo Jasmine Primary Care Provider + Encounter Details Date Type Department Care Team (Late st Contact Info) Description 10/04/2023 MyChart Message Enc [facility] Neurology Specialty Clinic [address] [phone] Dorina Ramírez MD [address] [place] [phone] MRIs Social History Tobacco Use Types Packs/Day Years Used Date Smoking Tobacco: Never Smokeless Tobacco: Never Alcohol Use Standard Drinks/Week Comments Not Currently 0 (1 standard drink = 0.6 oz pur e alcohol) Comments Unknown Sex and Gender Information Value Date Recorded Sex Assigned at Female 09/15/2023 1:19 PM CDT Legal Sex Female 12:13 PM PRACTICAL NURSE CLINICAL COORDINATOR Gender Identity Female 09/15/2023 1:19 PM CDT Sexual Orientation Straight 09/15/2023 1: 19 PM CDT documented as of this encounter Plan of Treatment Upcoming Encounters Date Type Department Care Team (Late st Contact Info) Description 01/02/2025 2:00 PM CDT Office Visit [facility] Multispecialty Care - [facility] [address] [facility], [address] [place] [phone] Aníbal Paredes MD [address] [place] [address] 01/22/2025 1:40 PM CDT Office Visit [facility] Neurology Specialty Clinic - [address] [phone] Dorina Ramírez MD [address] [place] [address] documented as of this encounter Visit Diagnoses Not on filedocumented in this encounter Care Teams Hand Stitcher Relationship Specialty Start Date End Date None, Provider, PCP - General UNKNOWN PHYSICIAN SPECIALTY 08/25/23 12/24/23 Papo Oleary PA [facility] [place] [phone] PCP - General PHYSICIAN SUPERVISOR HARD CANDY 12/25/23 documented as of this encounter
--- OUTSIDE RECORDS SUMMARY | 2024-10-07 13:45 | XMS_ITS | Clinical Summary ---
Author Organization [facility] Address [address] [place] [address] Care Team Providers Care Winding Department Supervisor Name Role Phone Papo Oleary Primary Care [...] Date Type Department Care Team Description 07/29/2024 Jessicaharsylvia Message Enc [facility] Interventional [place] [address] [phone] [facility] Provider PAIN MANAGEMENT CLINIC 07/09/2024 Prep for Procedure [facility] Interventional [facility] [place] [address] [phone] Lila Patricia, ACID POLYMERIZATION OPERATOR from Last 3 Months Family History Medical [...] PM CDT Legal Sex Female 12:13 PM DOCUMENT CONTROL ASSOCIATE Gender Identity Female 09/15/2023 1:19 PM CDT Sexual Orientation Straight 09/15/2023 1: 19 PM CDT Last Filed Vital Signs Vital Sign Reading Time Taken Comments Blood Pressure 148/96 07/05/2024 9:59 AM DOCUMENT CONTROL ASSOCIATE Pulse 74 07/05/2024 9:59 AM DOCUMENT CONTROL ASSOCIATE Temperature 36.5 C (97.7 F) 03/04/2024 12:51 PM CDT Respiratory Rate 18 03/04/2024 1:18 PM CDT Oxygen Saturation 97% 07/05/2024 9:59 AM DOCUMENT CONTROL ASSOCIATE Inhaled Oxygen Concentration - - Weight 105.7 kg (233 lb) 07/05/2024 9:59 AM DOCUMENT CONTROL ASSOCIATE Height 160 cm (5' 3 ) 07/05/2024 9:59 AM DOCUMENT CONTROL ASSOCIATE Body Mass Index 41.27 07/05/2024 9:59 AM DOCUMENT CONTROL ASSOCIATE Plan of Treatment Upcoming Encounters Date Type Department Care Team (Late st Contact Info) Description 01/02/2025 2:00 PM CDT Office Visit [facility] Mult[facility]pecialty Care - [facility] [address] [facility], [address] [place] [address] Aníbal Paredes MD [address] [place] [address] 01/22/2025 1:40 PM CDT Office Visit [facility] Neurology Specialty Clinic - [address] [phone] Dorina Ramírez MD [address] [place], [place] [phone] Health Maintenance Due Date Last Done Comments [...] Screening with HPV 1998 Mammogram Screening 2008 Pneumococcal Vaccine: 50+ Ye ars (1 of 1 - PCV) 2018 Zoster Vaccines (1 of 2) 2018 COVID-19 Vaccine ( - 2023-2 5 season) 2024 PHQ-2 (Physician [place]) 06/12/2024 Meningococcal B Vaccine Aged Out No l onger eligible based on patient's age to complete this topic Meningococcal Vaccine Aged Out No karey ad eligible based on patient's age to complete this topic RSV Immunizations Under 20 Months Aged Out No longer eligible based on patient's age to complete this topic Insurance [facility] Care Teams Winding Department Supervisor Relationship Specialty Start Date End Date Papo Oleary PA [address] [place] [address] [place] [address] PCP - General PHYSICIAN SWITCHBOARD WIRER 12/25/23
--- OUTSIDE RECORDS SUMMARY | 2024-10-07 13:46 | XMS_ITS | Encounter Summary ---
Author Organization [facility] Address [address] [place] [address] Care Team Providers Care Edi Analyst Name Role Phone Papo Oleary Primary Care Provider + Encounter Details Date Type Department Care Team (Late st Contact Info) Description 05/20/2024 eduplanet KKhart Message Enc [facility] [place] [address] [id number] Ariane Ball MD Three [facility] [address] [place], [place] [phone] Neck/Upper Back Social History Tobacco Use Types Packs/Day Years Used Date Smoking Tobacco: Never Smokeless Tobacco: Never Alcohol Use Standard Drinks/Week Comments Not Currently 0 (1 standard drink = 0.6 oz pur e alcohol) Comments No Sex and Gender Information Value Date Recorded Sex Assigned at Female 09/15/2023 1:19 PM CDT Legal Sex Female 12:13 PM AUTO COLLISION REPAIR INSTRUCTOR Gender Identity Female 09/15/2023 1:19 PM CDT Sexual Orientation Straight 09/15/2023 1: 19 PM CDT documented as of this encounter Plan of Treatment Upcoming Encounters Date Type Department Care Team (Late st Contact Info) Description 01/02/2025 2:00 PM CDT Office Visit [facility] Care - [facility] [address] [facility], [address] [place] [phone] Aníbal Paredes MD [address] [place] [address] 01/22/2025 1:40 PM CDT Office Visit [facility] [address] [phone] Dorina Ramírez MD [address] [place] [address] documented as of this encounter Visit Diagnoses Not on filedocumented in this encounter Care Teams Edi Analyst Relationship Specialty Start Date End Date Papo Oleary PA [facility] [place] [phone] PCP - General PHYSICIAN WAXER FLOOR 12/25/23 documented as of this encounter
--- OUTSIDE RECORDS SUMMARY | 2024-10-07 13:46 | XMS_ITS | Encounter Summary ---
Author Organization [facility] Address [address] [place] [id number] Care Team Providers Care Slot Operations Director Name Role Phone Papo Oleary Primary Care Provider + Encounter Details Date Type Department Care Team (Late Contact Info) Description 05/20/[address] 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 Gender Identity Female 09/15/2023 1:19 PM CDT Sexual Orientation Straight 09/15/2023 1: 19 PM CDT documented as of this encounter Plan of Treatment Upcoming Encounters Date Type Department Care Team (Late st Contact Info) Description 01/02/2025 2:00 PM CDT Office Visit [facility] Multispecialty Care - [facility] [address] [facility], [address] [place] [phone] Aníbal Paredes MD [address] [place] [address] 01/22/2025 1:40 PM CDT Office Visit [facility] [address] [phone] Dorina Ramírez MD [address] [place] [address] documented as of this encounter Visit Diagnoses Not on filedocumented in this encounter Care Teams Slot Operations Director Relationship Specialty Start Date End Date Papo Oleary PA [facility] [place] [address] PCP - 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
--- OUTSIDE RECORDS SUMMARY | 2024-10-07 13:46 | XMS_ITS | Data Portability ---
Author Organization [place] [facility], Main Office Address [address] [place] [id number] Assessment No assessment recorded. Plan of Treatment Reminders Order Date Submit Date Provider Last Modified By Organization Details Last Modified Time Details Appointments Follow Up 15 2024 09:30A M CHIKA Morlilo Not available Not available Not available Lab gamma-glu tamyl transfera se (ggt), serum 2023 024 [email or web address] Not available 04/02/2024 17:12:25 hepatitis panel (A+B+C), acute, serum 2023 024 [email or web address] Not available 04/02/2024 17:12:25 amylase, serum or plasma 2023 024 [email or web address] Not available 04/02/2024 17:12:25 CMP, serum or plasma 2023 024 Not available 04/02/2024 17:12:25 hepatitis C virus Ab, serum 2023 024 DYLAN Not available 03/26/2024 08:23:16 lipid panel, serum 2023 024 DYLAN Not available 11/10/2023 17:25:35 CMP, serum or plasma 2023 024 [email or web address] Not available 11/20/2023 10:24:40 HbA1c (hemoglob in A1c), blood 2023 024 DYLAN Not available 11/10/2023 16:41:23 vitamin B12 + folate, serum or blood 2023 024 [email or web address] Not available 11/20/2023 10:24:39 vitamin D, 25-hydrox y, total, serum 2023 024 [email or web address] Not available 11/20/2023 10:24:40 PTH (parathyr oid hormone), intact, serum or plasma 2023 024 Not available 11/20/2023 10:24:39 calcium, ionized, blood 2023 024 [email or web address] Not available 11/20/2023 10:24:39 phosphoru s, serum or plasma 2023 024 [email or web address] Not available 11/20/2023 10:24:39 TSH, serum or plasma 2023 024 [email or web address] Not available 11/20/2023 10:24:39 T4, free, serum 2023 024 [email or web address] Not available 11/20/2023 10:24:39 T3, free, serum or plasma 2023 024 [email or web address] Not available 11/20/2023 10:24:39 thyroglob ulin Ab, serum 2023 DYLAN Not available 11/13/2023 17:17:05 thyroid peroxidas e (tpo) Ab, serum 2023 024 DYLAN Not available 11/13/2023 17:17:05 Referral gynecolog ist referral - Needs a PAP smear. Please call patient to schedule an appointme nt. Thank you 2023 [email or web address] Priscilla Colmenares DO, [address], [place], [address], 12/08/2023 08:36:46 Procedures None recorded. Surgeries None recorded. Imaging US, liver 2023 [facility], [address] [place] [address] , [place], [address], 04/02/2024 11:05:53 Medication Orders Zepbound 2.5 mg/0.5 mL subcutane ous pen injector 2024 025 [facility], [address] [place] [address], [id number], 09/23/2024 11:30:00 Depo-Medr ol 80 mg/mL suspensio n for injection 2024 025 iedshaw Not available 09/23/2024 11:57:36 prednison e 20 mg tablet 2024 025 [facility], [address] [place] [address], [id number], 09/23/2024 11:26:29 gabapenti n 300 mg capsule 2024 025 [facility] [address], [address] [place] [address], [address], 06/25/2024 11:50:30 Depo-Medr ol 80 mg/mL suspensio n for injection 2024 025 iedshaw Not available 09/23/2024 11:05:04 prednison e 20 mg tablet [address] [facility], [address] [place] [address], [address], 09/23/2024 11:05:12 Nucynta ER 50 mg tablet,ex tended release 2023 024 [facility], [address] [place] [address], [id number], 03/25/2024 12:01:38 gabapenti n 300 mg capsule 2023 024 [facility], [address] [place] [address], [address], 11/10/2023 10:13:26 hydrochlo rothiazid e 12.5 mg capsule 2023 024 [facility], [address] [place] [address], [address], 11/10/2023 10:18:34 losartan 25 mg tablet 2023 024 [facility], [address] [place] [address], [address], 11/10/2023 10:18:33 pramipexo le 0.125 mg tablet 2023 024 [facility], [address] [place] [address], [address], 08/08/2023 10:06:26 levothyro xine 100 mcg tablet 2023 024 [facility], [address] [place] [address], [address], 08/08/2023 10:03:21 Patient TargetsNo targets recorded. Patient Instructions Encounter Date Encounter Id Patient Instructions Last Modified By Organization Details Last Modified Time 03/25/2024 [id number] recheck BP at home , let us know if still high, usually normal at home [email or web address] Not available 04/18/2024 11:55:57 06/25/2024 [id number] recheck BP at home , she will call us if it is high ; it is always normal at home [email or web address] Not available 07/02/2024 15:07:49 09/23/2024 [id number] reviewed salty foods to avoid . 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 Please call patient to schedule an appointment. Thank you Referring Physician: Papo Oleary, Family Medicine, Encounter Date: 11/10/2023 Results Created Date Observation Date Name Description Value Unit Range Abnormal Flag Note LastModifiedBy Organization Detail LastModifiedTime 04/02/2004/02/2024 US, liver No observ ation [facility] ed[facility] [address] [place], [address], 05/17/2024 10:36:24 09/06/19 25 09/04/2024 imagi ng/di mitzyos tic resul t No observ ation record ed. [facility] [address], [place], [address], 09/05/2024 08:55:24 Result Notes None recorded. Problems Name Problem SNOMED Code Status Onset Date Resolution Date Notes Provider Name and Address Organization Details Recorded Time Menopause Active 2022 Not Available [facility] 3 00:27:32 Weight gain 9054786 Active 2022 Not Available [facility] 3 00:27:32 Chronic low back pain 201155054 Active 2022 Not Available [facility] 3 00:27:32 Restless legs 44081117 Active 2022 Not Available [facility] 3 00:27:32 Primary hyperpara thyroidis m 71761488 Active 2022 Ariella Segovia MD [address], [address], [place], [address] , [facility] 3 13:14:02 Pain of bilateral thighs 93222755187 080780 Active 2022 CHIKA Morillo [address], [address], [place], [address] , [facility] 3 11:43:54 Fibromyal moriah 881664569 Active 2022 CHIKA Morillo [address], [address], [place], [address] , [facility] 3 11:47:41 Screening for malignant neoplasm of breast Active 2022 CHIKA Morillo [address], [address], [place], [address] , [facility] 3 11:51:43 Burning feet 09163186 Active 2023 CHIKA Morillo [address], [address], [place], [address] , [facility] 4 10:12:16 Adult health examinati on Active 2023 CHIKA Morillo [address], [address], [place], [address] , [facility] 4 10:21:23 Screening for malignant neoplasm of cervix Active 2023 CHIKA Morillo [address], [address], [place], [address] , [facility] 4 10:24:20 Liver enzymes level above reference range 649994785 Active 2023 CHIKA Morillo [address], [place], [address] , [facility] 4 11:58:44 Right side sciatica 66401543349 9101 Active 2024 CHIKA Morillo [address], [address], [place], [address] , [facility] 5 11:51:18 Obesity 978593227 Active 2024 CHIKA Morillo [address], [place], [address] , [facility] 5 11:28:06 Diverticu litis of colon 022932219 Active Not Available [facility] 3 00:27:32 Acute sinusitis 07480040 Active Not Available [facility] 3 00:27:32 Thyroid nodule 422852863 Active 2021 Not Available [facility] 3 00:27:32 Increased blood pressure 14074166 Active Not Available [facility] 3 00:27:32 Acute sciatica 272181762 Active Not Available [facility] 3 00:27:32 Current tear of medial cartilage AND/OR meniscus of knee Active 2018 Not Available [facility] 3 00:27:32 Knee pain Completed 201803/19/2019 Not Available [facility] 3 04:44:53 Knee pain Active 2018 Not Available [facility] 3 00:27:32 Vitamin D deficienc y 60030109 Active Not Available [facility] 3 00:27:32 Sinusitis 12062505 Active Not Available [facility] 3 00:27:32 Hypothyro idism 00583687 Active Not Available [facility] 3 00:27:32 Essential hypertens ion 81672682 Active 2021 Not Available [facility] 3 00:27:32 Vitamin B12 deficienc y (non anemic) 65507980 Active 2021 Not Available [facility] 3 00:27:32 Hypercalc emia 14509437 Active 2021 Not Available [facility] 3 00:27:32 Muscle pain 05828773 Active Not Available [facility] 3 00:27:32 Fatigue 34431355 Active 2021 Not Available [facility] 3 00:27:32 Problem Notes None recorded. Procedures Surgical History Date Name Laterality Status Provider Name and Address Organization Details Recorded Time 05/29/20 mammography completed Leticia Graf RN [place] - [place] [employer] 06/22/2023 12:31:59 Elbow arthroscopy/corby radha completed Not Available [facility] 08/10/2022 04:41:02 Cyst Removal completed [facility]/10[facility]2022 04:41:02 Carpal tunnel completed Not Available [facility] 08/10/2022 04:41:02 Knee completed Not Available [facility] 06/2022 04:41:02 Imaging Results Imaging Date Name Status LastModified by Organiz ation Details LastModified Time 04/02/2024 US, liver completed [facility] [address] [place], [address], 05/17/2024 10:36:24 09/04/2024 imaging/diag nostic result active [facility] [address] [facility] [facility] [address], [place], [address], 09/05/2024 08:55:24 Procedure Notes None recorded. Medical Equipment None Reported. Allergies No known drug allergies Medications Name Sig Start Date Stop Date Status Note LastModified by Organization Details LastModified Time losartan 50 mg tablet TAKE 1 TABLET BY MOUTH ONCE DAILY IN THE MORNING 03/25 completed Not Available Not Available Not Available celecoxib 200 mg capsule TAKE 1 CAPSULE BY MOUTH TWICE DAILY active Not Available Not Available No t Available Augmentin 875 mg-125 mg tablet Take 1 tablet every 12 hours by oral route for 10 days. 11/08 completed Not Available Not Available Not Available ropinirol e 1 mg tablet TAKE 1 TABLET BY MOUTH ONCE DAILY AT BEDTIME 03/21 completed Not Available Not Available Not Available tizanidin e 2 mg tablet TAKE 1 TO 2 TABLETS BY MOUTH TWICE DAILY 08/08 completed Not Available Not Available Not Available etodolac 300 mg capsule TAKE 1 CAPSULE BY MOUTH TWICE DAILY 10/28 completed Not Available Not Available Not Available tizanidin e 4 mg tablet Take 1 tablet by mouth three times daily as needed active Not Available Not Available No t Available sumatript an 100 mg tablet TAKE 1 TABLET BY MOUTH TWICE DAILY NEEDED FOR MIGRAINE . TAKE 1 TABLET AT ONSET OF SYMPTOMS . MAY TAKE 1 TABLET 2 HOURS LATER. MAX DOSE OF 2 TABLETS IN 24 HOUR PERIOD 11/09 completed Not Available Not Available Not Available hydrocodo ne 5 mg-acetam inophen 325 mg tablet Take 1 tablet twice a day by oral route as needed for 3 days. 11/09 completed Not Available Not Available Not Available meloxicam 15 mg tablet 01/04 completed Not Available Not Available Not Available prednison e 20 mg tablet Take 2 tabs PO twice daily for 2 days; 1 tab PO twice daily for 5 days; 1/2 tab PO twice daily for 2 days; 1/2 tab PO once for 1 day. TAKE 2ND DOSE EVERYDAY AT NOON-10 DAY COURSE 2024 active Not Available Not Available Not Avai lable Zithromax Z-Arron 250 mg tablet Take 2 TABLET EVERY DAY by oral route for 1 day. Than 1 tablet for 4 days 09/01 completed Not Available Not Available Not Available penicilli n V potassium 500 mg tablet 05/15 completed Not Available Not Available Not Available metronida zole 500 mg tablet active Not Available Not Available No t Available phentermi ne 37.5 mg tablet Take 1 tablet by mouth once daily 10/14 completed Not Available Not Available Not Available ciproflox acin 500 mg tablet active Not Available Not Available No t Available liothyron ine 5 mcg tablet TAKE 1 TABLETS BY MOUTH IN THE MORNING AND 1 IN THE EVENING active Not Available Not Available No t Available tramadol 50 mg tablet TAKE 1 TO 2 TABLETS BY MOUTH EVERY 6 HOURS NEEDED active Not Available Not Available No t Available Depo-Medr ol 80 mg/mL suspensio n for injection Take 1 mL by injectio n route. 2024 active Not Available Not Available Not Avai lable meloxicam 7.5 mg tablet active Not Available Not Available Not Available levothyro xine 100 mcg tablet Take 1 tablet every day by oral route. active Not Available Not Available No t Available Zofran 4 mg tablet Take 1 tablet every 8 hours by oral route for 30 days. 05/16 completed Not Available Not Available Not Available levothyro xine 88 mcg tablet TAKE 1 TABLET BY MOUTH ONCE DAILY 11/09 completed Not Available Not Available Not Available amoxicill in 875 mg tablet 02/21 completed Not Available Not Available Not Available Kenalog 10 mg/mL suspensio n for injection In office injectio n administ ered by the provider 09/01 completed [facility]: 0003-049 4-20 Not Available Not Available Not Available dexametha sone 1 mg tablet TAKE 1 TABLET BY MOUTH AT 10PM THE NIGHT BEFORE 8 AM CORTISOL 11/09 completed Not Available Not Available Not Available benzonata te 100 mg capsule Take 1 capsule 3 times a day by oral route. 02/21 completed Not Available Not Available Not Available cyanocoba bekah (vit B-12) 1,000 mcg/mL injection solution INJECT 1 ML ONCE A WEEK SUBCUTAN EOUSLY IN THE MORNING 10/14 completed Not Available Not Available Not Available levothyro xine 125 mcg tablet 05/15 completed Not Available Not Available Not Available losartan 25 mg tablet Take 1 tablet every day by oral route in the morning for 30 days. active Not Available Not Available No t Available hydrochlo rothiazid e 12.5 mg capsule Take 1 capsule by mouth once daily active Not Available Not Available No t Available pramipexo le 0.125 mg tablet Take 1 tablet every day by oral route at bedtime for 30 days. active Not Available Not Available No t Available gabapenti n 300 mg capsule Take 2 capsules 3 times a day by oral route for 30 days. active Not Available Not Available No t Available omeprazol e 20 mg capsule,d elayed release Take 1 capsule by mouth once daily active Not Available Not Available No t Available folic acid 1 mg tablet TAKE 1 TABLET BY MOUTH ONCE DAILY active Not Available Not Available No t Available insulin syringe U-100 with needle 1 mL 31 gauge x 5/16 USE TO INJECT B12 SUBCUTAN EOUSLY ONCE WEEKLY FOR 90 DAYS 10/28 completed Not Available Not Available Not Available cyanocoba bekah (vit B-12) 1,000 mcg sublingua l tablet Place 1 tablet every day by sublingu al route for 30 days. 10/14 completed Not Available Not Available Not Available Synthroid 112 mcg tablet Take 1 tablet every day by oral route in the morning for 90 days. 07/25 completed Not Available Not Available Not Available ergocalci ferol (vitamin D2) 1,250 mcg (50,000 unit) capsule TAKE 2 CAPSULES BY MOUTH ONCE A WEEK 2024 active Not Available Not Available Not Avai lable clobetaso l 0.05 % topical ointment 05/17 completed Not Available Not Available Not Available methylpre dnisolone 4 mg tablets in a dose pack TAKE BY MOUTH DIRECTED ON INSIDE OF PACKAGE 07/26 completed Not Available Not Available Not Available metaxalon e 800 mg tablet TAKE 1 TABLET BY MOUTH 4 TIMES DAILY NEEDED 02/13 completed Not Available Not Available Not Available Vitamin D3 25 mcg (1,000 unit) capsule Take 1 unit every day by oral route. 08/29 completed Not Available Not Available Not Available cyclobenz aprine 5 mg tablet TAKE 1 TO 2 TABLETS BY MOUTH TWICE DAILY NEEDED FOR 30 DAYS active Not Available Not Available No t Available topiramat e 50 mg tablet Take 1 tablet every day by oral route. 10/14 completed Not Available Not Available Not Available duloxetin e 30 mg capsule,d elayed release TAKE 1 CAPSULE BY MOUTH ONCE DAILY IN THE MORNING FOR 7 DAYS 08/08 completed side effects Not Available Not Available Not Available duloxetin e 60 mg capsule,d elayed release Take 1 capsule every day by oral route in the morning for 30 days. 08/08 completed side effects Not Available Not Available Not Available pregabali n 200 mg capsule TAKE 1 TABLET BY MOUTH THREE TIMES DAILY 10/14 completed Not Available Not Available Not Available Lyrica 50 mg capsule active Not Available Not Available Not Available Lyrica 100 mg capsule TAKE 1 CAPSULE BY MOUTH THREE TIMES DAILY active Not Available Not Available No t Available Vitamin C 2019 active Not Available Not Available Not Avai lable lidocaine (PF) 10 mg/mL (1 %) injection solution In office injectio n administ ered by the provider 09/01 completed [facility]: 0409-427 11-26 Not Available Not Available Not Available naltrexon e HCl (bulk) 100 % powder take 1 mg at bedtime 10/14 completed Not Available Not Available Not Available diclofena c 1 % topical gel APPLY 2 GRAMS PER JOINT TOPICALL Y (HANDS KNEES) FOUR TIMES DAILY active Not Available Not Available No t Available Nucynta ER 100 mg tablet,ex tended release TAKE 1 TABLET BY MOUTH EVERY 12 HOURS 01/17 completed makes her itchy , switched to 50 mg dose Not Available Not Available Not Available Nucynta ER 50 mg tablet,ex tended release Take 1 tablet every 12 hours by oral route as needed for 30 days. active Not Available Not Available No t Available Qsymia 7.5 mg-46 mg capsule, extended release Take 1 capsule every day by oral route. 12/03 completed Not Available Not Available Not Available Zorvolex 18 mg capsule 01/04 completed Not Available Not Available Not Available Zorvolex 35 mg capsule 08/13 completed Not Available Not Available Not Available Saxenda 3 mg/0.5 mL (18 mg/3 mL) subcutane ous pen injector Use as directed . 10/23 completed Not Available Not Available Not Available turmeric 2019 active Not Available Not Available Not Avai lable Zepbound 2.5 mg/0.5 mL subcutane ous pen injector active Not Available Not Available Not Available Vitals Date Recorded Body height Body mass index (BMI) Body weight Heart rate Oxygen saturation Oxygen saturation in Arterial blood by Pulse oximetry Respiratory rate Body temperature Systolic blood pressure Diastolic blood pressure Provider Name and Address Organization Details Last Updated DateTime 4 160.02 cm 43.4 kg/m2 242098. 13 g 66 /min 99 % 99 % 16 /min 97.3 [degF] 126 mm[Hg] 86 mm[Hg] Paige Harris RN [facility] [employer] [facility] 4 09:40:24 Date Recorded Body height Body mass index (BMI) Body weight Body temperature Respiratory rate Heart rate Oxygen saturation Oxygen saturation in Arterial blood by Pulse oximetry Systolic blood pressure Diastolic blood pressure Provider Name and Address Organization Details Last Updated DateTime 4 160.02 cm 42 kg/m2 007676. 39 g 98.1 [degF] 16 /min 52 /min 98 % 98 % 134 mm[Hg] 92 mm[Hg] Cony Linder RN [facility] [employer] [facility] 4 09:42:50 Date Recorded Body height Body mass index (BMI) Body weight Body temperature Heart rate Oxygen saturation Oxygen saturation in Arterial blood by Pulse oximetry Systolic blood pressure Diastolic blood pressure Provider Name and Address Organization Details Last Updated DateTime 4 160.02 cm 42.7 kg/m2 616315. 76 g 98 [degF] 105 /min 99 % 99 % 160 mm[Hg] 110 mm[Hg] Cony Linder RN [facility] [employer] [facility] 4 11:35:22 Date Recorded Body height Body mass index (BMI) Body weight Body temperature Oxygen saturation Oxygen saturation in Arterial blood by Pulse oximetry Heart rate Systolic blood pressure Diastolic blood pressure Provider Name and Address Organization Details Last Updated DateTime 5 160.02 cm 44 kg/m2 073542. 63 g 98.7 [degF] 97 % 97 % 68 /min 132 mm[Hg] 92 mm[Hg] Leticia Graf RN [facility] [employer] [facility] 5 11:37:53 Date Recorded Body height Body mass index (BMI) Body weight Body temperature Oxygen saturation Oxygen saturation in Arterial blood by Pulse oximetry Heart rate Systolic blood pressure Diastolic blood pressure Provider Name and Address Organization Details Last Updated DateTime 5 160.02 cm 44.8 kg/m2 532997. 87 g 97 [degF] 96 % 96 % 86 /min 128 mm[Hg] 94 mm[Hg] Elvia Reyes, A [facility] [employer] [facility] 11:07:20 Social History Question Answer Notes LastModified by Organizat ion Details LastModified Time Tobacco Smoking Status Never Smoker Leticia Graf RN null, [facility] [employer] [facility] 05/29/2023 11:11:54 What Is Your Level Of Alcohol Consumption? Occasional [id number] Information not available 08/10/2022 What Is Your Level Of Caffeine Consumption? Moderate [id number] Information not available 08/10/2022 In The 14 Days Before Symptom Onset, Have You Had Close Contact With A Laboratory-confirm ed COVID-19 While That Case Was Ill? No [email or web address] Information n ot available 05/29/2023 In The 14 Days Before Symptom Onset, Have You Had Close Contact With A Person Who Is Under Investigation For COVID-19 While That Person Was Ill? No Information not available 05/29/2023 What Type Of Diet Are You Following? REGULAR [id number] Information not available 08/10/2022 What Is The Highest Grade Or Level Of School You Have Completed Or The Highest Degree You Have Received? [id number] [email or web address] Information not available 05/29/2023 What Was The Date Of Your Most Recent Tobacco Screening? 10/27/2020 [email or web address] Information not available 05/29/2023 Have You Ever Been Counseled For Unhealthy Alcohol Use? No [email or web address] Information not available 05/29/2023 What Is Your Relationship Status? [id number] Information not available 08/10/2022 Do You Use Any Illicit Or Recreational Drugs? No [email or web address] Information not available 05/29/2023 Have You Recently Traveled Abroad? No [email or web address] Information not available 05/29/2023 Do You Have Any Dietary Restrictions? No [email or web address] Information not available 05/29/2023 Sex: Female Functional Status None recorded. Mental Status None recorded. Family History Relationship Description Onset Age of this Age Resolved Age Notes LastModified by Organization Details LastModified Time Mother Family history of malignant neoplasm breast [id number] Not available 08/10/2022 04:41:02 Mother Malignant neoplasm of ovary [id number] Not available 08/10/2022 04:41:02 Father Arthritis [id number] Not available 08/10/2022 04:41:02 Father Congestive heart failure [id number] Not available 08/10/2022 04:41:02 Sister Family history of malignant neoplasm [id number] Not available 08/10/2022 04:41:03 Sister Hypothyroidi sm [id number] Not available 08/10/2022 04:41:03 Sister Fibromyalgia [id number].0 [id number] Not available 08/10/2022 04:41:03 Daughter Hypothyroidi sm [id number] [id number] Not available 08/10/2022 04:41:03 Daughter Lupus erythematosu s [id number] [id number] Not available 08/10/2022 04:41:03 Medical History Condition Response ARTHRITIS Y HYPOTHYROIDISM Y Gynecological HistoryNo gynecological history recorded. Obstetrics History GPAL:G 0 P 0 0 0 0 Past Encounters Encounter ID Performer Location Encounter Start Date Encounter Closed Date Diagnosis/Indication Diagnosis SNOMED-CT Code Diagnosis ICD10 Code Diagnosis Note [id number] [place] [address] 09/01/2020 00:00:00 09/02/2020 06:56:58 [id number] [facility] [address] 10/23/2020 00:00:00 10/24/2020 12:17:14 [id number] [facility] [address] [place] [address] 10/27/2020 00:00:00 10/27/2020 11:38:04 [id number] [facility] [address] 01/12/2021 00:00:00 01/13/2021 06:32:59 [id number] [facility] [facility] [address] [place] [address] 01/26/2021 00:00:00 01/26/2021 11:05:20 [id number] [facility] [address] , [place] [address] 01/28/2021 00:00:00 01/28/2021 12:08:22 [id number] [facility] [place] [address], [place] [address] 03/05/2021 00:00:00 03/07/2021 13:47:12 [id number] [facility] [address] [place] [address] 03/12/2021 00:00:00 03/12/2021 18:13:15 [id number] [facility] [place] [address] [place] [address] 05/17/2021 00:00:00 05/17/2021 13:35:27 [id number] [facility] [place] [address] [place] [address] 08/23/2021 00:00:00 08/23/2021 15:44:13 [id number] [facility] [facility] [address] , [place] [address] 12/01/2021 00:00:00 12/01/2021 20:06:32 [id number] [facility] [place] [address] [place] [address] 12/06/2021 00:00:00 12/06/2021 10:19:54 [id number] Ariella Segovia MD [facility] [place] [address] [place] [address] 10/14/2022 11:20:21 10/14/2022 12:02:31 Hypothyroidism 96355241 E03.9 Thyroid levels in range- continue synthroid 88 mcg daily and continued liothyroni ne 10 mcg daily along with 5 mcg at bedtime. Repeat levels in 1 month to assess need to modify therapy further. She was reminded to take her synthroid on empty stomach with glass of water and wait one hour to eat or have her coffee in morning and up to 4 hours if ever taking any heartburn or reflux medication s to help optimize absorption . Discussed paleo like diet with restrictio n of GMOs to help with energy and to optimize absorption of vitamins and minerals and reduce inflammati on. Hypercalcemia 19322039 E 83.52 We have obtained labwork in the past and her SPEP/immun ofixation were normal- this may be due to hctz but due to bone pain will send for repeat parathyroi d panel, vit D and bone density scan to assess for bone loss. Menopause 217088956 N95. 1 send for bone density to assess for bone loss. Weight gain 7198525 R63. 5 Will send for low dose dexa suppressio n testing to screen for hypercorti solic state. Spent up to 28 minutes preparing to see the patient (eg, review of tests), obtaining and/or reviewing separately obtained history, performing a medically appropriat e examinatio n and evaluation , counseling and educating the patient, ordering medication s, tests, along with documentin g clinical informatio n in the electronic health record, independen tly interpreti ng results and communicat ing results to the patient. RTC in 4-6 months. Patient was provided a handwritte n lab order which contains our fax number. If she chooses to go outside of the [facility] to obtain labwork she was advised to provide our fax number and my informatio n to the lab she will be obtaining labwork from in order to have her labs properly forwarded over for me to review so there is no loss of follow up due to use of outside network. She was also advised to contact our clinic informing us that she has completed her labwork so we are aware we will need to reach out to the appropriat e laboratory to request her results be forwarded to us so I might have the ability to review and make further medical decision making in her case. She voiced understand ing. [id number] Ty Sams MD [facility] [place] [address] [place] [address] 10/28/2022 10:15:14 10/28/2022 11:01:44 Chronic low back pain 168140069 M54.50 Continue celebrex may increase to BID and use nucynta as needed. Restless legs 06725164 G 25.81 [id number] Ariella Segovia MD [facility] [place] [address] [place] [address] 03/21/2023 12:29:08 03/21/2023 14:31:57 Hypothyroidism 39693617 E03.9 Thyroid levels in range with low normal FT4 and fatigue- will make modest titration of synthroid to 100 mcg daily and continue on liothyroni ne 10 mcg in morning along with 5-10 mcg in afternoon. She was reminded to take her synthroid on empty stomach with glass of water and wait one hour to eat or have her coffee in morning and up to 4 hours if ever taking any heartburn or reflux medication s to help optimize absorption . Discussed paleo like diet with restrictio n of GMOs to help with energy and to optimize absorption of vitamins and minerals and reduce inflammati on. Primary hyperparathyroidism 72216570 E21.0 Refer to endocrinol ogy- her calcium is mildly elevated and PTH not suppressed highly suggestive of hyperparat hyroidism. She does have fatigue, imbalance issues and mild hypertensi on would be worth working up for potential parathyroi dectomy. Vitamin B1 2 deficiency (non anemic) 75576309 E53.8 Continue on folic acid and B12 supplement ation. Spent up to 25 minutes preparing to see the patient (eg, review of tests), obtaining and/or reviewing separately obtained history, performing a medically appropriat e examinatio n and evaluation , counseling and educating the patient, ordering medication s, tests, along with documentin g clinical informatio n in the electronic health record, independen tly interpreti ng results and communicat ing results to the patient. Patient can be followed by PCP - she/he is aware of my resignatio n and last day of March 24. If needed his/her PCP can refer patient to another endocrinol ogist in the area. All questions /concerns answered and refills necessary at visit today. [id number] CHIKA Morillo [facility] [place] [address] , [place] [address] 05/29/2023 11:09:59 05/29/2023 11:53:39 Essential hypertension 46609231 I10 Pain of bi lateral thighs 3569446396 5338030 M79.651 M79.652 Osteoarthritis 397565223 M19.90 Fibromyalgia 322650367 M 79.7 Screening for malignant neoplasm of breast 082732666 Z12.39 [id number] CHIKA Morillo [facility] [place] [facility] [place] [address] 08/08/2023 09:30:04 08/08/2023 10:08:16 Hypothyroidism 57751813 E03.9 Fibromyalgia 659125894 M 79.7 Restless legs 50810573 G 25.81 Chronic low back pain 27 4743607 M54.50 Essential hypertension 49882885 I10 Fatigue 04650406 R53.83 Vitamin B1 2 deficiency (non anemic) 98904344 E53.8 Vitamin D deficiency 347 33192 E55.9 [id number] CHIKA Morillo [facility] [place] [address] [place] [address] [place] [address] 11/10/2023 09:20:00 11/10/2023 10:29:33 Burning feet 78599553 E53.9 Chronic low back pain 27 3823518 M54.50 Essential hypertension 74513866 I10 Fibromyalgia 976369653 M 79.7 Hypercalcemia 06589334 E 83.52 Hypothyroidism 69476934 E03.9 Primary hyperparathyroidism 73442684 E21.0 Restless legs 07736505 G 25.81 Vitamin B1 2 deficiency (non anemic) 13386249 E53.8 Vitamin D deficiency 347 46994 E55.9 Adult [facility] th examination 845153195 Z00.00 Screening for malignant neoplasm of cervix 743823650 Z12.4 [id number] CHIKA Morillo [facility] [place] [address] [place] [address] [place] [address] 03/25/2024 11:24:24 03/25/2024 12:10:19 Liver enzymes level above reference range 682280009 R74.01 Chronic low back pain 27 9046710 M54.50 Fibromyalgia 661183965 M 79.7 Essential hypertension 47223772 I10 Primary hyperparathyroidism 67821953 E21.0 Vitamin B1 2 deficiency (non anemic) 29362996 E53.8 Vitamin D deficiency 347 06417 E55.9 [id number] CHIKA Morillo [facility] [address] 06/25/2024 11:13:17 06/25/2024 12:31:16 Burning feet 81687861 E53.9 Right side sciatica 3202 055934 21654 M54.31 [id number] CHIKA Morillo [facility] [address] 09/23/2024 10:48:33 09/23/2024 11:51:31 Right side sciatica 0422335790 81066 M54.31 Obesity 405240405 E66.9 Health Concerns Section Related Observation LastModified by Organization Detai ls LastModified Time None Recorded Concern Status LastModified by Organization Details LastModified Time None Recorded Advance Directives Directive None Recorded Payers Encounter Date Sequence Insurance Name Policy Number Policy Wyman Covered Member ID Wyman Member ID Guarantor Name 08/08/2023 1 [place] 112 Kushal Krishnan [id number] Reta Krishnan 11/10/2023 1 [place] 112 Kushal Krishnan [id number] Reta Krishnan 03/25/2024 1 [place] 112 Kushal Krishnan [id number] Reta Krishnan 06/25/2024 1 [place] 112 Kushal Krishnan [id number] Reta Krishnan 09/23/2024 1 [place] 112 Kushal Krishnan [id number] Reta Krishnan Notes Date Note Type Note Provider Name and Address Organization Details Recorded Time 08/08/2023 text/html needs refills CHIKA Morillo [address] [facility] [place] [address], [place], [address], [facility] [place] [employer] 08/16/2023 15:18:39 11/10/2023 text/html burning in feet , low back pain , throws her off , would like a cane CHIKA Morillo [address], [place], [address], [facility] [employer] 11/13/2023 11:29:34 03/25/2024 text/html liver enzymes up . CHIKA Morillo [address], [place], [address], [facility] [employer] 04/18/2024 11:56:53 06/25/2024 text/html right hip , sciatica and arthritis . neuropathy in feet worse. BP at home this morning 138 /78. CHIKA Morillo [address], [place], [address], [facility] [employer] 07/02/2024 15:12:34 09/23/2024 text/html right sciatica acting up CHIKA Morillo [address], [place], [address], [facility] [employer] 10/03/2024 16:30:07 OBGyn Episode No OBEpisode recorded.
--- OUTSIDE RECORDS SUMMARY | 2024-10-07 13:46 | XMS_ITS | Encounter Summary ---
Author Organization [facility] Address [address] [place] [address] Care Team Providers Care Caustic Loader Name Role Phone Papo Oleary Primary Care Provider + Encounter Details Date Type Department Care Team (Latest Contact Info) Description 07/29/2024 Nosopharm Message Enc [facility] [place] [address] [id number] Jostin, [facility] Provider [facility] Social History Tobacco Use Types Packs/Day Years Used Date Smoking Tobacco: Never Smokeless Tobacco: Never Alcohol Use Standard Drinks/Week Comments Not Currently 0 (1 standard drink = 0.6 oz pur e alcohol) Comments No Sex and Gender Information Value Date Recorded Sex Assigned at Female 09/15/2023 1:19 PM CDT Legal Sex Female 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 Gender Identity Female 09/15/2023 1:19 PM CDT Sexual Orientation Straight 09/15/2023 1: 19 PM CDT documented as of this encounter Plan of Treatment Upcoming Encounters Date Type Department Care Team (Late st Contact Info) Description 01/02/2025 2:00 PM CDT Office Visit [facility] Multispecialty Care - [facility] [address] [facility], [address] [place] [phone] Aníbal Paredes MD [address] [place] [address] 01/22/2025 1:40 PM CDT Office Visit [facility] Medical Group Neurology Specialty Clinic - [address] [address] Dorina Ramírez MD [address] [place] [address] documented as of this encounter Visit Diagnoses Not on filedocumented in this encounter Care Teams Caustic Loader Relationship Specialty Start Date End Date Papo Oleary PA [facility] [place] [address] PCP - General PHYSICIAN GENETICS PHYSICIAN 12/25/23 documented as of this encounter
--- OUTSIDE RECORDS SUMMARY | 2024-10-07 13:46 | XMS_ITS | Encounter Summary ---
Author Organization [facility] Address [address] [place] [address] Care Team Providers Care Wire Twisting Machine Operator Name Role Phone Papo Oleary Primary Care Provider + Encounter Details Date Type Department Care Team (Late Contact Info) Description 05/14/2024 [employer]Containers Message [facility] Patient Accounts [address] [place] [address] [facility] Action Needed Social History Tobacco Use Types Packs/Day Years Used Date Smoking Tobacco: Never Smokeless Tobacco: Never Alcohol Use Standard Drinks/Week Comments Not Currently 0 (1 standard drink = 0.6 oz pur e alcohol) Comments No Sex and Gender Information Value Date Recorded Sex Assigned at Female 09/15/2023 1:19 PM CDT 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 Gender Identity Female 09/15/2023 1:19 PM CDT Sexual Orientation Straight 09/15/2023 1: 19 PM CDT documented as of this encounter Plan of Treatment Upcoming Encounters Date Type Department Care Team (Late Contact Info) Description 01/02/2025 2:00 PM CDT Office Visit [facility] Multispecialty Care - [facility] [address] [facility], [address] [place] [address] Aníbal Paredes MD [address] [place] [address] 01/22/2025 1:40 PM CDT Office Visit [facility] Neurology Specialty [facility] - [place] [address] [place] [address] Dorina Ramírez MD [address] [place] [address] documented as of this encounter Visit Diagnoses Not on filedocumented in this encounter Care Teams Wire Twisting Machine Operator Relationship Specialty Start Date End Date Papo Olaery PA [facility] [place] [address] PCP - General PHYSICIAN RACK LOADER 12/25/23 documented as of this encounter
[2024-10-09 11:48] LABS: Thyroid Peroxidase Antibodies 4 IU/mL (<9)
[2024-10-09 14:37] LABS: Ionized Calcium 5.1 mg/dL (4.7-5.5)
== END 2024-10-07 11:50 | disposition home or self-care (01) ==
LOC: ANHLAB 11:51
PROVIDERS: PCP Physician Assistant; Visit Provider Internal Medicine
DX: E03.9 Hypothyroidism, unspecified (principal); E53.8 Deficiency of other specified B group vitamins; E55.9 Vitamin D deficiency, unspecified
CPT/HCPCS: 36415; 80053; 82330; 84439; 84443; 86376

== ENCOUNTER 2024-12-24 11:04 | Outpatient (CLI) | payer BC, SELFPAY ==
--- OUTSIDE RECORDS SUMMARY | 2024-12-24 11:23 | XMS_ITS ---
Author Organization [facility] [employer] [facility] Address [address] [place], [place] [id number] Care Team Providers Care Capsule Machine Operator Name Role Phone Gordy Oleary Primary Care Provider Paige Allison Unavailable [phone] FaGely em Unavailable [phone] ALLERGIES No Known Allergies RESULTS Component Value Reference Range Notes AST (SGOT) Reviewed date:08/06/2024 07:35:11 AM Interpretation: Performing Lab:[facility], [place], Phone - [phone], Director - [facility] Notes/Report: AST (SGOT) 16 0-40 IU/L Creatinine, Serum Reviewed date:08/06/2024 07:35:11 AM Interpretation: Performing Lab:[employer] [facility] [facility], [place], Phone - [phone], [facility] Notes/Report: Creatinine 0.65 0.57-1.00 mg/dL eGFR 103 >59 mL/min/1.73 ALT (SGPT) Reviewed date:08/06/2024 07:35:11 AM Interpretation: Performing Lab:[employer] [facility], [place], Phone - [phone], Director - [facility] Notes/Report: ALT (SGPT) 24 0-32 IU/L CBC With Differential/Platel et Reviewed date:08/06/2024 07:35:11 AM Interpretation: Performing Lab:[facility], Phone - [phone], Director - [place] Notes/Report: WBC 8.3 3.4-10.8 [...] 0.0-0.1 x10E3/uL NRBC Hematology Comments: REASON FOR VISIT Patient presents for scheduled rheumatology follow up MEDICATIONS Medication SIG (Take, Route, Frequency, Duration) Notes Start Date End Date Status omeprazole 20 mg orally Act mark traMADol 50 mg 1-2 tab(s) orally every 6 hours Active TiZANidine Hydrochloride 2 mg TAKE 1 TO 2 TABLETS BY MOUTH TWICE DAILY Active Nucynta 100 mg 1 tab(s) orally ever y 6 hours Active Voltaren Gel - for upper bod y joint 1% APPLY 2 GRAMS PER JOINT TOPICALLY (HANDS/KNEES) FOUR TIMES DAILY Active hydroCHLOROthiazide 12.5 mg 1 cap(s) ora lly once a day Active Calcium Active turmeric 500 mg 1 cap(s) orally thre e times a day Active gabapentin 300 mg 2 cap(s) orally 3 times a day Active Vitamin D2 (obsolete) 50,000 intl units 1 cap(s) orally bid a week Active Tylenol Active liothyronine 5 mcg 1 tab(s) orally once a day Active losartan Active folic acid 1 mg 1 tab(s) orally once a day Active celecoxib 200 mg 1 cap(s) orally once a day Active levothyroxine 100 mcg (0.1 mg) 1 tab(s) orally once a day Active SOCIAL HISTORY Tobacco Use: Social History Observation Description Date Details (start date - stop date) Never Smoker NA - NA Sex Assigned At : Social History Observation Description Sex Assigned At Unknown Tobacco Use: Question Answer Notes Smoking Status nonsmoker VITAL SIGNS BMI 43.40 kg/m2 08/05/2024 Blood pressure systolic 127 mm Hg 08/05/19 25 Blood pressure diastolic 88 mm Hg 025 Heart Rate 79 /min 08/05/2024 Height 63 in 08/05/2024 Weight 245 lbs 08/05/2024 PROCEDURES Procedure Date Ordered Date Performed Result Body Sit e Joint Injection - knee, right 08/05/2024 N/A Encounters Encounter Location Date Provider Diagnosis [facility] [address] [place] [address], [address] [place], [place] [phone] 08/05/2024 Gely Trammell Primary generalized (osteo)arthritis M15.0 ; Pain, joint, knee, right M25.561 ; Pain, joint, knee, left M25.562 ; Other detention (current) drug therapy Z79.899 ; Fibromyalgia M79.7 ; Vitamin D deficiency E55.9 ; Fatigue, unspecified type R53.83 and 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 She stopped Lyrica due to side effects, savella was too expensive. On Gabapentin for neuropathy and it helps some - but causes her to be sleepy during the day. Seeing pain mgmnt. Doing trigger point injections with PCP. Seeing neurology for headaches and neuropathy. TPO pos - follows with endocrine and is on thyroid replacement. Knee OA - last bilateral knee injection helped, she would like to get right knee injections again today. Check labs. 08/05/2024 Pain, joint, knee, right (ICD-10 - M25.561) Cont Celebrex for OA/DJD/FMS, she felt like Etodolac caused HAs so she stopped it. She stopped Lyrica due to side effects, savella was too expensive. On Gabapentin for neuropathy and it helps some - but causes her to be sleepy during the day. Seeing pain mgmnt. Doing trigger point injections with PCP. Seeing neurology for headaches and neuropathy. TPO pos - follows with endocrine and is on thyroid replacement. Knee OA - last bilateral knee injection helped, she would like to get right knee injections again today. Check labs. 08/05/2024 Pain, joint, knee, left (ICD-10 - M25.562) Cont Celebrex for OA/DJD/FMS, she felt like Etodolac caused HAs so she stopped it. She stopped Lyrica due to side effects, savella was too expensive. On Gabapentin for neuropathy and it helps some - but causes her to be sleepy during the day. Seeing pain mgmnt. Doing trigger point injections with PCP. Seeing neurology for headaches and neuropathy. TPO pos - follows with endocrine and is on thyroid replacement. Knee OA - last bilateral knee injection helped, she would like to get right knee injections again today. Check labs. 08/05/2024 Other detention (current) drug therapy (ICD-10 - Z79.899) Cont Celebrex for OA/DJD/FMS, she felt like Etodolac caused HAs so she stopped it. She stopped Lyrica due to side effects, savella was too expensive. On Gabapentin for neuropathy and it helps some - but causes her to be sleepy during the day. Seeing pain mgmnt. Doing trigger point injections with PCP. Seeing neurology for headaches and neuropathy. TPO pos - follows with endocrine and is on thyroid replacement. Knee OA - last bilateral knee injection helped, she would like to get right knee injections again today. Check labs. 08/05/2024 Fibromyalgia (ICD-10 - M79.7) Cont Celebrex for OA/DJD/FMS, she felt like Etodolac caused HAs so she stopped it. She stopped Lyrica due to side effects, savella was too expensive. On Gabapentin for neuropathy and it helps some - but causes her to be sleepy during the day. Seeing pain mgmnt. Doing trigger point injections with PCP. Seeing neurology for headaches and neuropathy. TPO pos - follows with endocrine and is on thyroid replacement. Knee OA - last bilateral knee injection helped, she would like to get right knee injections again today. Check labs. 08/05/2024 Vitamin D deficiency (ICD-10 - E55.9) Cont Celebrex for OA/DJD/FMS, she felt like Etodolac caused HAs so she stopped it. She stopped Lyrica due to side effects, savella was too expensive. On Gabapentin for neuropathy and it helps some - but causes her to be sleepy during the day. Seeing pain mgmnt. Doing trigger point injections with PCP. Seeing neurology for headaches and neuropathy. TPO pos - follows with endocrine and is on thyroid replacement. Knee OA - last bilateral knee injection helped, she would like to get right knee injections again today. Check labs. 08/05/2024 Fatigue, unspecified type (ICD-10 - R53.83) Cont Celebrex for OA/DJD/FMS, she felt like Etodolac caused HAs so she stopped it. She stopped Lyrica due to side effects, savella was too expensive. On Gabapentin for neuropathy and it helps some - but causes her to be sleepy during the day. Seeing pain mgmnt. Doing trigger point injections with PCP. Seeing neurology for headaches and neuropathy. TPO pos - follows with endocrine and is on thyroid replacement. Knee OA - last bilateral knee injection helped, she would like to get right knee injections again today. Check labs. 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 She stopped Lyrica due to side effects, savella was too expensive. On Gabapentin for neuropathy and it helps some - but causes her to be sleepy during the day. Seeing pain mgmnt. Doing trigger point injections with PCP. Seeing neurology for headaches and neuropathy. TPO pos - follows with endocrine and is on thyroid replacement. Knee OA - last bilateral knee injection helped, she would like to get right knee injections again today. Check labs. PLAN OF TREATMENT Medication Medication Name Sig Start Date Stop Date Notes omeprazole 20 mg orally traMADol 50 mg 1-2 tab(s) orally ev mana 6 hours TiZANidine Hydrochloride 2 mg TAKE 1 TO 2 TABLETS BY MOUTH TWICE DAILY Nucynta 100 mg 1 tab(s) orally ever y 6 hours Voltaren Gel - for upper bod y joint 1% APPLY 2 GRAMS PER JOINT TOPICALLY (HANDS/KNEES) FOUR TIMES DAILY hydroCHLOROthiazide 12.5 mg 1 cap(s) ora lly once a day Calcium turmeric 500 mg 1 cap(s) orally thre e times a day Vitamin D2 (obsolete) 50,000 intl units 1 cap(s) orally bid a week Tylenol liothyronine 5 mcg 1 tab(s) orally once a day losartan folic acid 1 mg 1 tab(s) orally once a day celecoxib 200 mg 1 cap(s) orally once a day levothyroxine 100 mcg (0.1 mg) 1 tab(s) orally once a day Pending Test Test Name Order Date Joint Injection - knee, right 08/05/2024 Next Appt Details Follow Up: 6 Months - gely, Reason: Provider Name:Gely Trammell, 0 02/03/2025 10:20:00 AM[facility] [address], [place], [place], [phone], Procedure Notes * Category Sub-Category Detail Notes Injection Site right , knee Drug Injected Xylocaine [facility]: 19692 -[id number] lot # [id number] exp: 08/07 , Triamcinalone Acetonide [facility] [id number] EXP: 2024-08 Dose 2mL , 20 mg x1 IA Note Site was prepped and cleaned, needle inserted without difficulty, patient tolerated procedure well, without any complications Progress Notes * Examination Category Sub-Category Detail Notes Category Not es Rheumatology Cervical Spine normal range of motion Lumbar spine: normal forward and l ateral bending Thoracic Spine: normal Sacroiliac: normal Fibromyalgia Tender Points: 05/29 General Constitutional: No acute distress HEENT: Neck supple, Normal sclerae and conjunctivae Cardiovascular Normal peripheral pu lsations, No edema Abdomen: soft, no organomegal y or masses /Rectal: not done Skin: No cutaneous lesions . No subcutaneous nodules noted in the 4 extremities Neurological: No focal neurologica l findings Heme/Lymphatic: No cervical, axillar y, or inguinal adenopathy Psych: Alert, oriented x 3, Normal affect Musculoskeletal: Normal strength. No muscle atrophy Joint Exam Shoulders No swelling. No tenderness. NROM., No instability or deformity. Elbows No swelling. No tend erness. NROM., No instability or deformity. Wrists No swelling. No tend erness. NROM., No instability or deformity. Hips No tenderness, NROM. , No instability or deformity. Knees No swelling, no tend erness, NROM., No instability or deformity. Ankles No swelling, no tend erness, NROM., No instability or deformity. All IPs No swelling, no tend erness, NROM, no deformity unless noted below. All MCPs No swelling, no tend erness, no deformity unless noted below. All PIPs No swelling, no tend erness, no deformity unless noted below. All DIPs No swelling, no tend erness, no deformity unless noted below. All MTPs No swelling, no tend erness, NROM, no deformity unless noted below. History and Physical Notes * HPI (History of Present Illness) Category Sub-Category Detail Notes Category Not es Rheumatology Alopecia Patient reports joint pain in her right hip/low back area that radiates laterally down her leg. She saw her PCP who administered a steroid injection in her hip, it helped briefly but has now warn off. She also saw neurology and they recommend seeing pain management and neurosurgery for low back. She has an appt with JADA in December. Still having pins and needles in her legs. Gabapentin helps but makes her sleepy during the day. She tried to not take the afternoon dose but the symptoms returned when she skipping the dose. She has been on Lyrica in the past, but had side effects with it. Savella was too expensive. Last visit knee injection helped, but right knee pain is returning and would like another injection today. Left knee doing ok. She has continued on Celebrex and tolerting it well. No recent fevers or infections. Dryness Fatigue Headaches Joint pain Joint stiffness Joint swelling Morning stiffness Muscle ache/pain Raynauds phenomena Physical Examination Category Sub-Category Detail Notes Section Note s MDHAQ Summary Physician Global Ass essment of Disease Activity (0-10):: 3 Prognosis Good w/tx Erosive Damage No
--- OUTSIDE RECORDS SUMMARY | 2024-12-24 11:24 | XMS_ITS | Encounter Summary ---
Author Organization [facility] Address [address] [place] [address] Care Team Providers Care Environmental Emergencies Assistant Name Role Phone None, Provider Primary Care Provider Papo Jasmine Primary Care Provider + Encounter Details Date Type Department Care Team (Late st Contact Info) Description 10/04/2023 MyChart Message Enc [facility] [address] [place] [address] [phone] Dorina Ramírez MD [address] [place] [phone] MRIs Social History Tobacco Use Types Packs/Day Years Used Date Smoking Tobacco: Never Smokeless Tobacco: Never Alcohol Use Standard Drinks/Week Comments Not Currently 0 (1 standard drink = 0.6 oz pur e alcohol) Comments Unknown Sex and Gender Information Value Date Recorded Sex Assigned at Female 09/15/2023 1:19 PM CDT Legal Sex Female 12:13 PM [employer] Gender Identity Female 09/15/2023 1:19 PM CDT Sexual Orientation Straight 09/15/2023 1: 19 PM CDT documented as of this encounter Plan of Treatment Upcoming Encounters Date Type Department Care Team (Late st Contact Info) Description 01/02/2025 2:00 PM CDT Office Visit [facility] [address], [address] [place] [phone] Aníbal Paredes MD [address] [place] [address] 03/21/2025 9:00 AM CDT Office Visit [facility] [address] [place] [address] [phone] Dorina Ramírez MD [address] [place] [address] documented as of this encounter Visit Diagnoses Not on filedocumented in this encounter Care Teams Environmental Emergencies Assistant Relationship Specialty Start Date End Date None, Provider, PCP - General UNKNOWN PHYSICIAN SPECIALTY 08/25/23 12/24/23 Papo Oleary PA [facility] [phone] PCP - General PHYSICIAN ROLL EDGE STITCHER HAND 12/25/23 documented as of this encounter
--- OUTSIDE RECORDS SUMMARY | 2024-12-24 11:24 | XMS_ITS ---
Author Organization [facility] Address [address] [place], [place] [phone] Care Team Providers Care School Nurse Name Role Phone Gordy Oleary Primary Care Provider Paige Allison Unavailable [phone] REASON FOR VISIT Hands Encounters Encounter Location Date Provider Diagnosis [facility] [address], [address] [place], [place] [phone] 11/25/2024 Paige Fuchs PLAN OF TREATMENT Next Appt Details Provider Name:Gely Trammell, 0 02/03/2025 10:20:00 AM, [address], [address], [place], [place], [phone],
--- OUTSIDE RECORDS SUMMARY | 2024-12-24 11:24 | XMS_ITS | Clinical Summary ---
Author Organization 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
--- OUTSIDE RECORDS SUMMARY | 2024-12-24 11:24 | XMS_ITS | Patient Health Record ---
Author Organization [facility] Address [address] [place], [place] [id number] Care Team Providers Care Circular Knife Cutter Machine Name Role Phone Gordy Oleary Primary Care Provider Paige Allison Unavailable [phone] Gely Trammell Unavailable [phone] ALLERGIES No Known Allergies RESULTS Component Value Reference Range Notes AST (SGOT) Reviewed date:02/06/2024 10:42:13 AM Interpretation: Performing Lab:[facility], Phone - [phone], Director - [facility] Notes/Report: AST (SGOT) 28 0-40 IU/L Creatinine, Serum Reviewed date:02/06/2024 10:42:13 AM Interpretation: Performing Lab:[facility], Phone - [phone], Director - [facility] Notes/Report: Creatinine 0.71 0.57-1.00 mg/dL eGFR 100 >59 mL/min/1.73 ALT (SGPT) Reviewed date:02/06/2024 10:42:13 AM Interpretation: Performing Lab:[facility], Phone - [phone], Director - [facility] Notes/Report: ALT (SGPT) 42 0-32 IU/L CBC With Differential/Platel et Reviewed date:02/06/2024 10:42:13 AM Interpretation: Performing Lab:[facility], Phone - [phone], Director - [facility] Notes/Report: WBC 6.0 3.4-10.8 x10E3/uL RBC [...] (SGOT) Reviewed date:08/06/2024 07:35:11 AM Interpretation: Performing Lab:[facility] [place], [address] [place] [address], Phone - [phone], [facility] - [facility] Notes/Report: AST (SGOT) 16 0-40 IU/L Creatinine, Serum Reviewed date:08/06/2024 07:35:11 AM Interpretation: Performing Lab[facility], [address] [place] [address], Phone - [phone], Director - [facility] Notes/Report: Creatinine 0.65 0.57-1.00 mg/dL eGFR 103 >59 mL/min/1.73 ALT (SGPT) Reviewed date:08/06/2024 07:35:11 AM Interpretation: Performing Lab[facility], [address] [facility], Phone - [phone], Director - [place] Notes/Report: ALT (SGPT) 24 0-32 IU/L CBC With Differential/Platel et Reviewed date:08/06/2024 07:35:11 AM Interpretation: Performing Lab:[facility] [place], [address] [facility] [place], Phone - [phone], Director - [place] Notes/Report: WBC 8.3 3.4-10.8 [...] Status Risk SNOMED Code Notes Problem Other superintendent container terminal (current) drug therapy (Z79.899) Active confirmed 725652062 Problem Vitamin D deficiency (E55.9) Active confirmed Vitamin D deficiency (40486491) Problem Fibromyalgia (M79.7) Active confirmed 296561900 Problem Primary generalized (osteo)arthritis (M15.0) Active confirmed 137813289 Problem Never smoked cigarettes (Z78.9) Active confirmed 079438415 Problem Degenerative disc disease, lumbar (M51.36) Active confirmed 23821063 Problem 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 [address] [phone] 02/05/2024 [facility] Primary generalized (osteo)arthritis M15.0 ; Pain, joint, knee, right M25.561 ; Pain, joint, knee, left M25.562 ; Other superintendent container terminal (current) drug therapy Z79.899 ; Fibromyalgia M79.7 ; Vitamin D deficiency E55.9 ; Fatigue, unspecified type R53.83 and Lee's thyroiditis E06.3 [facility] [address] [place] [phone] 08/05/2024 [facility] Primary generalized (osteo)arthritis M15.0 ; Pain, joint, knee, right M25.561 ; Pain, joint, knee, left M25.562 ; Other superintendent container terminal (current) drug therapy Z79.899 ; Fibromyalgia M79.7 ; Vitamin D deficiency E55.9 ; Fatigue, unspecified type R53.83 and Lee's thyroiditis E06.3 [facility] [address] [place] [phone] 02/06/2024 Paige Fuchs [facility] [address] [place] [address] [phone] 11/25/2024 Paige Fuchs [facility] [address] [place] [phone] 11/27/2024 Paige Fuchs ASSESSMENTS Encounter Date Diagnosis Assessment Notes Treatment Notes Treatment Clinical Notes Section Notes 02/05/2024 Pain, joint, knee, right (ICD-10 - M25.561) Cont Celebrex 200mg daily for OA/DJD/FMS, she felt like Etodolac caused HAs so she stopped it. She stopped Lyrica due to side effects, savella was too expensive. Started on gabapentin recently, with mild improvement in symptoms. Importance of good sleep and exercise explained. Seeing pain mgmnt. Can do trigger point injections with PCP. Seeing neurology for headaches and neuropathy. TPO pos - follows with endocrine and is on thyroid replacement. Knee OA - last bilateral knee injection helped, she would like to get knee injections again today. Check labs. 02/05/2024 Primary generalized (osteo)arthritis (ICD-10 - M15.0) Cont Celebrex 200mg daily for OA/DJD/FMS, she felt like Etodolac caused HAs so she stopped it. She stopped Lyrica due to side effects, savella was too expensive. Started on gabapentin recently, with mild improvement in symptoms. Importance of good sleep and exercise explained. Seeing pain mgmnt. Can do trigger point injections with PCP. Seeing neurology for headaches and neuropathy. TPO pos - follows with endocrine and is on thyroid replacement. Knee OA - last bilateral knee injection helped, she would like to get knee injections again today. Check labs. 08/05/2024 [...] knee injections again today. Check labs. 08/05/2024 Primary generalized (osteo)arthritis (ICD-10 - M15.0) [...] right knee injections again today. Check labs. 02/05/2024 Pain, joint, knee, left (ICD-10 - M25.562) Cont Celebrex 200mg daily for OA/DJD/FMS, she felt like Etodolac caused HAs so she stopped it. She stopped Lyrica due to side effects, savella was too expensive. Started on gabapentin recently, with mild improvement in symptoms. Importance of good sleep and exercise explained. Seeing pain mgmnt. Can do trigger point injections with PCP. Seeing neurology for headaches and neuropathy. TPO pos - follows with endocrine and is on thyroid replacement. Knee OA - last bilateral knee injection helped, she would like to get knee injections again today. Check labs. 08/05/2024 [...] right knee injections again today. Check labs. 02/05/2024 Other superintendent container terminal (current) drug therapy (ICD-10 - Z79.899) Cont Celebrex 200mg daily for OA/DJD/FMS, she felt like Etodolac caused HAs so she stopped it. She stopped Lyrica due to side effects, savella was too expensive. Started on gabapentin recently, with mild improvement in symptoms. Importance of good sleep and exercise explained. Seeing pain mgmnt. Can do trigger point injections with PCP. Seeing neurology for headaches and neuropathy. TPO pos - follows with endocrine and is on thyroid replacement. Knee OA - last bilateral knee injection helped, she would like to get knee injections again today. Check labs. 08/05/2024 Other skilled nursing (current) drug therapy (ICD-10 - Z79.899) Cont [...] right knee injections again today. Check labs. 02/05/2024 Fibromyalgia (ICD-10 - M79.7) Cont Celebrex 200mg daily for OA/DJD/FMS, she felt like Etodolac caused HAs so she stopped it. She stopped Lyrica due to side effects, savella was too expensive. Started on gabapentin recently, with mild improvement in symptoms. Importance of good sleep and exercise explained. Seeing pain mgmnt. Can do trigger point injections with PCP. Seeing neurology for headaches and neuropathy. TPO pos - follows with endocrine and is on thyroid replacement. Knee OA - last bilateral knee injection helped, she would like to get knee injections again today. Check labs. 08/05/2024 [...] right knee injections again today. Check labs. 02/05/2024 Vitamin D deficiency (ICD-10 - E55.9) Cont Celebrex 200mg daily for OA/DJD/FMS, she felt like Etodolac caused HAs so she stopped it. She stopped Lyrica due to side effects, savella was too expensive. Started on gabapentin recently, with mild improvement in symptoms. Importance of good sleep and exercise explained. Seeing pain mgmnt. Can do trigger point injections with PCP. Seeing neurology for headaches and neuropathy. TPO pos - follows with endocrine and is on thyroid replacement. Knee OA - last bilateral knee injection helped, she would like to get knee injections again today. Check labs. 08/05/2024 [...] right knee injections again today. Check labs. 02/05/2024 Fatigue, unspecified type (ICD-10 - R53.83) Cont Celebrex 200mg daily for OA/DJD/FMS, she felt like Etodolac caused HAs so she stopped it. She stopped Lyrica due to side effects, savella was too expensive. Started on gabapentin recently, with mild improvement in symptoms. Importance of good sleep and exercise explained. Seeing pain mgmnt. Can do trigger point injections with PCP. Seeing neurology for headaches and neuropathy. TPO pos - follows with endocrine and is on thyroid replacement. Knee OA - last bilateral knee injection helped, she would like to get knee injections again today. Check labs. 08/05/2024 [...] right knee injections again today. Check labs. 02/05/2024 Lee's thyroiditis (ICD-10 - E06.3) Cont Celebrex 200mg daily for OA/DJD/FMS, she felt like Etodolac caused HAs so she stopped it. She stopped Lyrica due to side effects, savella was too expensive. Started on gabapentin recently, with mild improvement in symptoms. Importance of good sleep and exercise explained. Seeing pain mgmnt. Can do trigger point injections with PCP. Seeing neurology for headaches and neuropathy. TPO pos - follows with endocrine and is on thyroid replacement. Knee OA - last bilateral knee injection helped, she would like to get knee injections again today. Check labs. 08/05/2024 [...] again today. Check labs. PLAN OF TREATMENT Pending Test Test Name [...] order 2017 Joint Injection - knee, right 08/05/2024 Joint Injection - knee, right 08/23/2023 Joint Injection - knee, right 05/23/2018 Joint Injection - knee, right 02/05/2024 Inj-Toradol 05/23/2022 X ray : Knee, right 3 views- outside ord er 08/07/2023 X ray : Knee, right 3 views- outside ord er 05/23/2018 X ray : Knee, left, 3 views- outside ord er 08/07/2023 X ray : Knee, left, 3 views- outside ord er 05/23/2018 X ray : Hip, left- outside order 019 X ray : Hip, right- outside order 2018 X ray : Foot Left- outside order 018 X ray : Foot Right- outside order 2017 Lab slip given 05/23/2022 -Xray slip given 06/26/2017 -Xray slip given 05/23/2018 -Xray slip given 07/17/2017 X ray : Knee, right 2 views- outside ord er 06/26/2017 X ray : Knee, left 2 views- outside orde r 06/26/2017 PT Evaluate and treat 01/31/2022 NCS : Lower Extremities, Right 8 NCS : Upper Extremities, Right 8 Myofacial release 08/22/2018 Next Appt Details Provider Name:Gely Trammell, 0 02/03/2025 10:20:00 AM, 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
--- OUTSIDE RECORDS SUMMARY | 2024-12-24 11:25 | XMS_ITS | Encounter Summary ---
Author Organization [facility] Address [address] [place] [address] Care Team Providers Care Cosmetologist Apprentice Name Role Phone Papo Oleary Primary Care Provider + Encounter Details Date Type Department Care Team (Late Contact Info) Description 05/20/2024 Prep for Procedure [facility] Interventional [facility] [place] [address] [phone] Ariane Ball MD [address] [facility] [address] [place], [place] [phone] Social History Tobacco Use Types Packs/Day Years Used Date Smoking Tobacco: Never Smokeless Tobacco: Never Alcohol Use Standard Drinks/Week Comments Not Currently 0 (1 standard drink = 0.6 oz pur e alcohol) Comments No Sex and Gender Information Value Date Recorded Sex Assigned at Female 09/15/2023 1:19 PM CDT 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 Gender Identity Female 09/15/2023 1:19 PM CDT Sexual Orientation Straight 09/15/2023 1: 19 PM CDT documented as of this encounter Plan of Treatment Upcoming Encounters Date Type Department Care Team (Late st Contact Info) Description 01/02/2025 2:00 PM CDT Office Visit [facility] Multispecialty Care - [facility] [address] [facility], [address] [place] [phone] Aníbal Paredes MD 3 [place] [address] 03/21/2025 9:00 AM CDT Office Visit [facility] [address] [phone] Dorina Ramírez MD 3 [place] [address] documented as of this encounter Visit Diagnoses Not on filedocumented in this encounter Care Teams Cosmetologist Apprentice Relationship Specialty Start Date End Date Papo Oleary PA [facility] [place] [address] PCP - General PHYSICIAN SCHOOL PLANT CONSULTANT 12/25/23 documented as of this encounter
--- OUTSIDE RECORDS SUMMARY | 2024-12-24 11:25 | XMS_ITS ---
Author Organization [facility] Address [address] [place], [place] [phone] Care Team Providers Care Tree Puller Name Role Phone Gordy Oleary Primary Care Provider Paige Allison Unavailable [phone] REASON FOR VISIT RE:Hands Encounters Encounter Location Date Provider Diagnosis [facility] [address], [address] [place], [place] [phone] 11/27/2024 Paige Fuchs PLAN OF TREATMENT Next Appt Details Provider Name:Gely Trammell, 0 02/03/2025 10:20:00 AM, [address], [address], [place], [place], [phone],
--- OUTSIDE RECORDS SUMMARY | 2024-12-24 11:25 | XMS_ITS | Encounter Summary ---
Author Organization [facility] Address [address] [place] [address] Care Team Providers Care Sales Assistants And Salespersons Name Role Phone Papo Oleary Primary Care Provider + Encounter Details Date Type Department Care Team (Latest Contact Info) Description 07/29/2024 [email or web address] Message Enc [facility] Interventional [place] [address] [phone] Jostin, 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 Gender Identity Female 09/15/2023 1:19 PM CDT Sexual Orientation Straight 09/15/2023 1: 19 PM CDT documented as of this encounter Plan of Treatment Upcoming Encounters Date Type Department Care Team (Late st Contact Info) Description 01/02/2025 2:00 PM CDT Office Visit [facility] Multispecialty Care - [facility] [address] [facility], [address] [place] [phone] Aníbal Paredes MD 3 [place] [address] 03/21/2025 9:00 AM CDT Office Visit [facility] Neurology Specialty Clinic - [address] [phone] Dorina Ramírez MD 3 [place] [address] documented as of this encounter Visit Diagnoses Not on filedocumented in this encounter Care Teams Sales Assistants And Salespersons Relationship Specialty Start Date End Date Papo Oleary PA [facility] [place] [phone] PCP - General PHYSICIAN CONE WINDER 12/25/23 documented as of this encounter
--- OUTSIDE RECORDS SUMMARY | 2024-12-24 11:25 | XMS_ITS | Data Portability ---
Author Organization [place] - [facility], Main Office Address [address] [place] [address] Assessment No assessment recorded. Plan of Treatment Reminders Order Date Submit Date Provider Last Modified By Organization Details Last Modified Time Details Appointments None recorded. Lab gamma-gluta myl transferase (ggt), serum 2023 024 [email or web address] 2 Not available 4 17:12:25 hepatitis panel (A+B+C), acute, serum 2023 024 [email or web address] 2 Not available 4 17:12:25 amylase, serum or plasma 2023 024 [email or web address] 2 Not available 4 17:12:25 CMP, serum or plasma 2023 024 [email or web address] 2 Not available 4 17:12:25 hepatitis C virus Ab, serum 2023 024 DYLAN Not available 4 08:23:16 lipid panel, serum 2023 024 DYLAN Not available 4 17:25:35 CMP, serum or plasma 2023 024 [email or web address] 2 Not available 4 10:24:40 HbA1c (hemoglobin A1c), blood 2023 024 DYLAN Not available 4 16:41:23 vitamin B12 + folate, serum or blood 2023 024 [email or web address] 2 Not available 4 10:24:39 vitamin D, 25-hydroxy, total, serum 2023 024 [email or web address] 2 Not available 4 10:24:40 PTH (parathyroi d hormone), intact, serum or plasma 2023 024 [email or web address] 2 Not available 4 10:24:39 calcium, ionized, blood 2023 024 [email or web address] 2 Not available 4 10:24:39 phosphorus, serum or plasma 2023 024 [email or web address] 2 Not available 4 10:24:39 TSH, serum or plasma 2023 024 [email or web address] 2 Not available 4 10:24:39 T4, free, serum 2023 024 [email or web address] 2 Not available 4 10:24:39 T3, free, serum or plasma 2023 024 [email or web address] 2 Not available 4 10:24:39 thyroglobul in Ab, serum 2023 024 DYLAN Not available 4 17:17:05 thyroid peroxidase (tpo) Ab, serum 2023 024 DYLAN Not available 4 17:17:05 Referral gynecologis t referral - Needs a PAP smear. Please call patient to schedule an appointment . Thank you 2023 024 [email or web address] Priscilla Colmenares DO, [address] [facility], [place], [address], 4 08:36:46 Procedures None recorded. Surgeries None recorded. Imaging US, liver 2023 024 [facility], [facility] [place] , [place], [address], 4 11:05:53 Medication Orders Zepbound 2.5 mg/0.5 mL subcutaneou s pen injector 2024 025 [facility], [address] [place] [address], [address], 5 11:30:00 Depo-Medrol 80 mg/mL suspension for injection 2024 025 [email or web address] 4 Not available 5 11:57:36 prednisone 20 mg tablet 2024 025 [facility], [address] [place] [address], [address], 5 11:26:29 gabapentin 300 mg capsule 2024 025 [facility], [address] [place] [address], [address], 5 11:50:30 Depo-Medrol 80 mg/mL suspension for injection 2024 025 [email or web address] 4 Not available 5 11:05:04 prednisone 20 mg tablet 2024 025 [email or web address] [facility] 436, [address] [place] [address], [address], 5 11:05:12 Nucynta ER 50 mg tablet,exte nded release 2023 024 [facility] 436, [address] [place] [address], [address], 4 12:01:38 gabapentin 300 mg capsule 2023 024 [facility], [address] [place] [address], [address], 4 10:13:26 hydrochloro thiazide 12.5 mg capsule 2023 024 [facility] 436, [address] [place] [address], [address], 4 10:18:34 losartan 25 mg tablet 2023 024 [facility] 436, [address] [place] [address], [address], 4 10:18:33 pramipexole 0.125 mg tablet 2023 024 [facility] 436, [address] [place], [address], 4 10:06:26 levothyroxi ne 100 mcg tablet 2023 024 [facility], [address] [place] [address], [address], 4 10:03:21 Patient TargetsNo targets recorded. Patient Instructions Encounter Date Encounter Id Patient Instructions Last Modified By Organization Details Last Modified Time 03/25/2024 [id number] recheck BP at home , let us know if still high, usually normal at home [email or web address] Not available 04/18/2024 11:55:57 06/25/2024 [id number] recheck BP at home , she will call us if it is high ; it is always normal at home [email or web address] Not available 07/02/2024 15:07:49 09/23/2024 [id number] reviewed salty foods to avoid . recheck BP at home [email or web address] Not available 10/03/2024 16:29:36 Reason for Referral Practice Coordinator Referral for Sc reening for malignant neoplasm of cervix Needs a PAP smear. Please call patient to schedule an appointment. Thank you Referring Physician: Papo Oleary, Family Medicine, Encounter Date: 11/10/2023 Results Created Date Observation Date Name Description Value Unit Range Abnormal Flag Note LastModifiedBy Organization Detail LastModifiedTime 04/02/2004/02/2024 US, liver No observ ation record ed. [facility] [address] [place], [address], 05/17/2024 10:36:24 09/06/19 25 09/04/2024 imagi ng/di agnos tic resul t No observ ation record ed. [facility] [address], [place], [address], 09/05/2024 08:55:24 Result Notes None recorded. Problems Name Problem SNOMED Code Status Onset Date Resolution Date Notes Provider Name and Address Organization Details Recorded Time Menopause Active 2022 Not Available [facility] 3 00:27:32 Weight gain 1903532 Active 2022 Not Available [facility] 3 00:27:32 Chronic low back pain 581286075 Active 2022 Not Available [facility] 3 00:27:32 Restless legs 21635753 Active 2022 Not Available [facility] 3 00:27:32 Primary hyperpara thyroidis m 22938004 Active 2022 Ariella Segovia MD [address], [address], [place], [address] , [employer] [place] [facility] [employer] [facility] [employer] 3 13:14:02 Pain of bilateral thighs 54209247265 925812 Active 2022 CHIKA Morillo [address], [address], [place], [address] , [employer] [facility] 3 11:43:54 Fibromyal moriah 056328705 Active 2022 CHIKA Morillo [address], [address], [place], [address] , [employer] [place] [employer] [facility] 3 11:47:41 Screening for malignant neoplasm of breast Active 2022 CHIKA Morillo [address], [place], [address] , [place] [employer] [facility] 3 11:51:43 Burning feet 51303881 Active 2023 CHIKA Morillo [address], [address], [place], [address] , [employer] [place] [employer] [facility] 4 10:12:16 Adult health examinati on Active 2023 CHIKA Morillo [address], [address], [place], [address] , [place] [facility] 4 10:21:23 Screening for malignant neoplasm of cervix Active 2023 CHIKA Morillo [address], [address], [place], [address] , [place] [facility] 4 10:24:20 Liver enzymes level above reference range 475310938 Active 2023 CHIKA oMrillo [address], [address], [place], [address] , [place] [facility] 4 11:58:44 Right side sciatica 26862461548 9101 Active 2024 CHIKA Morillo [address], [address], [place], [address] , [place] [facility] 5 11:51:18 Obesity 999953815 Active 2024 CHIKA Morillo [address], [place], [address] , [place] [facility] 5 11:28:06 Diverticu litis of colon 584463696 Active Not Available [facility] 3 00:27:32 Acute sinusitis 83453300 Active Not Available [facility] 3 00:27:32 Thyroid nodule 769430386 Active 2021 Not Available [facility] 3 00:27:32 Increased blood pressure 88488481 Active Not Available [facility] 3 00:27:32 Acute sciatica 862770102 Active Not Available [facility] 3 00:27:32 Current tear of medial cartilage AND/OR meniscus of knee Active 2018 Not Available [facility] 3 00:27:32 Knee pain Completed 201803/19/2019 Not Available [facility] 3 04:44:53 Knee pain Active 2018 Not Available [facility] 3 00:27:32 Vitamin D deficienc y 68743647 Active Not Available [facility] 3 00:27:32 Sinusitis 14174316 Active Not Available [facility] 3 00:27:32 Hypothyro idism 51173836 Active Not Available [facility] 3 00:27:32 Essential hypertens ion 30171923 Active 2021 Not Available [facility] 3 00:27:32 Vitamin B12 deficienc y (non anemic) 31767282 Active 2021 Not Available [facility] 3 00:27:32 Hypercalc emia 31464885 Active 2021 Not Available [facility] 3 00:27:32 Muscle pain 99362893 Active Not Available [facility] 3 00:27:32 Fatigue 39708488 Active 2021 Not Available [facility] 3 00:27:32 Problem Notes None recorded. Procedures Surgical History Date Name Laterality Status Provider Name and Address Organization Details Recorded Time 05/29/20 mammography completed Leticia Graf RN [place] [facility] 06/22/2023 12:31:59 Elbow arthroscopy/corby radha completed Not Available [facility] 08/10/2022 04:41:02 Cyst Removal completed Not Available [facility] 08/10/2022 04:41:02 Carpal tunnel completed Not Available [facility] 08/10/2022 04:41:02 Knee completed Not Available [facility] 06/2022 04:41:02 Imaging Results None recorded. Procedure Notes None recorded. Medical Equipment None Reported. Allergies No known drug allergies Medications Name Sig Start Date Stop Date Status Note LastModified by Organization Details LastModified Time losartan 50 mg tablet TAKE 1 TABLET BY MOUTH ONCE DAILY IN THE MORNING 03/25 completed Not Available Not Available Not Available celecoxib 200 mg capsule Take 1 capsule by mouth twice daily 2024 active Not Available Not Available Not Avai lable Augmentin 875 mg-125 mg tablet Take 1 [...] Not Available tizanidin e 4 mg tablet TAKE 1 TABLET BY MOUTH THREE TIMES DAILY NEEDED active Not Available Not Available No [...] administ ered by the provider 09/01 completed [facility]: 0003-049 4-20 Not Available Not Available Not [...] Available Not Available losartan 25 mg tablet TAKE 1 TABLET BY MOUTH ONCE DAILY IN THE MORNING active Not Available Not Available No t Available hydrochlo rothiazid e 12.5 mg capsule Take 1 capsule by mouth once daily active Not Available Not Available No t Available pramipexo le 0.125 mg tablet Take 1 tablet every day by oral route at bedtime for 30 days. active Not Available Not Available No t Available gabapenti n 300 mg capsule TAKE 2 CAPSULES BY MOUTH THREE TIMES DAILY active Not Available Not Available No t Available omeprazol e 20 mg capsule,d elayed release Take 1 capsule by mouth once daily active Not Available Not Available No t Available folic acid 1 mg tablet TAKE 1 TABLET BY MOUTH ONCE DAILY FOR 90 DAYS 2024 active Not Available Not Available Not Avai lable insulin syringe U-100 with needle 1 mL [...] 2 CAPSULES BY MOUTH ONCE A WEEK active Not Available Not Available No t Available clobetaso l 0.05 % topical ointment 05/17 [...] administ ered by the provider 09/01 completed [facility]: 0409-427 6-17 Not Available Not Available Not Available naltrexon [...] Nucynta ER 50 mg tablet,ex tended release TAKE 1 TABLET BY MOUTH EVERY 12 HOURS NEEDED active Not Available Not Available [...] blood by Pulse oximetry Heart rate Systolic And Diastolic Provider Name and Address Organization Details Last Updated DateTime 5 160.02 cm 44 kg/m2 561225. 63 g 98.7 [degF] 97 % 97 % 68 /min 132/92 mm[Hg] AB [facility] 5 11:37:53 Date Recorded Body height Body mass index (BMI) Body weight Heart rate Oxygen saturation Oxygen saturation in Arterial blood by Pulse oximetry Respiratory rate Body temperature Systolic And Diastolic Provider Name and Address Organization Details Last Updated DateTime 4 160.02 cm 43.4 kg/m2 682103. 13 g 66 /min 99 % 99 % 16 /min 97.3 [degF] 126/86 mm[Hg] Paige Harris RN [facility] 4 09:40:24 Date Recorded Body height Body mass index (BMI) Body weight Body temperature Oxygen saturation Oxygen saturation in Arterial blood by Pulse oximetry Heart rate Systolic And Diastolic Provider Name and Address Organization Details Last Updated DateTime 5 160.02 cm 44.8 kg/m2 456649. 87 g 97 [degF] 96 % 96 % 86 /min 128/94 mm[Hg] Elvia Reyes [facility] 5 11:07:20 Date Recorded Body height Body mass index (BMI) Body weight Body temperature Respiratory rate Heart rate Oxygen saturation Oxygen saturation in Arterial blood by Pulse oximetry Systolic And Diastolic Provider Name and Address Organization Details Last Updated DateTime 4 160.02 cm 42 kg/m2 375434. 39 g 98.1 [degF] 16 /min 52 /min 98 % 98 % 134/92 mm[Hg] Cony Linder RN [facility] 4 09:42:50 Date Recorded Body height Body mass index (BMI) Body weight Body temperature Heart rate Oxygen saturation Oxygen saturation in Arterial blood by Pulse oximetry Systolic And Diastolic Provider Name and Address Organization Details Last Updated DateTime 4 160.02 cm 42.7 kg/m2 462586. 76 g 98 [degF] 105 /min 99 % 99 % 160/110 mm[Hg] Cony Linder RN [facility] 4 11:35:22 Social History Question Answer Notes LastModified by Organizat ion Details LastModified Time Tobacco Smoking Status Never Smoker Leticia Graf RN [facility], [facility] 05/29/2023 11:11:54 What Is Your Level Of Caffeine Consumption? Moderate [id number] Information not available 08/10/2022 In The 14 Days Before Symptom Onset, Have You Had Close Contact With A Laboratory-confirm ed COVID-19 While That Case Was Ill? No [email or web address] Information n ot available 05/29/2023 In The 14 Days Before Symptom Onset, Have You Had Close Contact With A Person Who Is Under Investigation For COVID-19 While That Person Was Ill? No [email or web address] Information not available 05/29/2023 What Type Of Diet Are You Following? REGULAR [id number] Information not available 08/10/2022 What Is The Highest Grade Or Level Of School You Have Completed Or The Highest Degree You Have Received? [id number] Information not available 05/29/2023 What Was The Date Of Your Most Recent Tobacco Screening? 10/27/2020 [email or web address] Information not available 05/29/2023 Have You Ever Been Counseled For Unhealthy Alcohol Use? No [email or web address] Information not available 05/29/2023 What Is Your Relationship Status? [id number] Information not available 08/10/2022 Have You Recently Traveled Abroad? No Information not available 05/29/2023 Do You Have Any Dietary Restrictions? No [email or web address] Information not available 05/29/2023 Sex: Female Functional Status Question Answer Note LastModified by Organizat ion Details LastModified Time Do you use any illicit or recreational drugs? No [email or web address] Information not available 05/29/2023 What is your level of alcohol consumption? Occasional [id number] Information not available 08/10/2022 Mental Status None recorded. Family History Relationship Description Onset Age of this Age Resolved Age Notes LastModified by Organization Details LastModified Time Mother Family history of malignant neoplasm breast [id number] Not available 08/10/2022 04:41:02 Mother Malignant neoplasm of ovary [id number].540 [id number] Not available 08/10/2022 04:41:02 Father Arthritis [email or web address].783 [id number] Not available 08/10/2022 04:41:02 Father Congestive heart failure [id number].620 [id number] Not available 08/10/2022 04:41:02 Sister Family history of malignant neoplasm [email or web address].194 [id number] Not available 08/10/2022 04:41:03 Sister Hypothyroidi sm MIGRATION.060 [id number] Not available 08/10/2022 04:41:03 Sister Fibromyalgia MIGRATION.0 30 [id number] Not available 08/10/2022 04:41:03 Daughter Hypothyroidi sm MIGRATION.264 [id number] Not available 08/10/2022 04:41:03 Daughter Lupus erythematosu s MIGRATION.695 [id number] Not available 08/10/2022 04:41:03 Medical History Condition Response ARTHRITIS Y HYPOTHYROIDISM Y Gynecological HistoryNo gynecological history recorded. Obstetrics History GPAL:G 0 P 0 0 0 0 Past Encounters Encounter ID Performer Location Encounter Start Date Encounter Closed Date Diagnosis/Indication Diagnosis SNOMED-CT Code Diagnosis ICD10 Code Diagnosis Note [id number] Ty Sams MD [facility] [place] [address], [place] [address] 09/01/2020 00:00:00 09/02/2020 06:56:58 [id number] Ty Sams MD [facility] [place] [address] [place] [address] 10/23/2020 00:00:00 10/24/2020 12:17:14 [id number] Juan Jose Melendez MD [facility] [place] [address] [place] [address] 10/27/2020 00:00:00 10/27/2020 11:38:04 [id number] Ty Sams MD [facility] [place] [address] [place] [address] 01/12/2021 00:00:00 01/13/2021 06:32:59 [id number] Juan Jose Melendez MD [facility] [place] [address] [place] [address] 01/26/2021 00:00:00 01/26/2021 11:05:20 [id number] Ty Sams MD [facility] [place] [address] [place] [place] [address] 01/28/2021 00:00:00 01/28/2021 12:08:22 [id number] Ty Sams MD [facility] [place] [address] [place] [place] [address] 03/05/2021 00:00:00 03/07/2021 13:47:12 [id number] Ariella Segovia MD [facility] [place] [address] [place] [address] 03/12/2021 00:00:00 03/12/2021 18:13:15 [id number] [facility] [place] [address] [place] [address] 05/17/2021 00:00:00 05/17/2021 13:35:27 [id number] Ariella Segovia MD [facility] [place] [address] [place] [address] 08/23/2021 00:00:00 08/23/2021 15:44:13 [id number] Ty Sams MD [facility] Family Practice [place] [address] [facility] [place] [address] 12/01/2021 00:00:00 12/01/2021 20:06:32 [id number] [facility] [place] [address] [place] [address] 12/06/2021 00:00:00 12/06/2021 10:19:54 [id number] Ariella Segovia MD [facility] [place] [address] [place] [address] 10/14/2022 11:20:21 10/14/2022 12:02:31 Hypothyroidism 94047902 E03.9 Thyroid levels in range- continue synthroid [...] and minerals and reduce inflammati on. Hypercalcemia 14074904 E 83.52 We have obtained labwork in the past and her SPEP/immun ofixation were normal- this may be due to hctz but due to bone pain will send for repeat parathyroi d panel, vit D and bone density scan to assess for bone loss. Menopause 297588594 N95. 1 send for bone density to assess for bone loss. Weight gain 6293328 R63. 5 Will send for low dose [...] she chooses to go outside of the [facility] system to obtain labwork she was [...] in her case. She voiced understand ing. [id number] Ty Sams MD [facility] [place] [address] [place] [address] 10/28/2022 10:15:14 10/28/2022 11:01:44 Chronic low back pain 011953933 M54.50 Continue celebrex may increase to BID and use nucynta as needed. Restless legs 04674212 G 25.81 [id number] Ariella Segovia MD [facility] [place] [address] [place] [address] 03/21/2023 12:29:08 03/21/2023 14:31:57 Hypothyroidism 62569559 E03.9 Thyroid levels in range with low [...] minerals and reduce inflammati on. Primary hyperparathyroidism 42474612 E21.0 Refer to endocrinol ogy- her calcium is mildly elevated and PTH not suppressed highly suggestive of hyperparat hyroidism. She does have fatigue, imbalance issues and mild hypertensi on would be worth working up for potential parathyroi dectomy. Vitamin B1 2 deficiency (non anemic) 17302428 E53.8 Continue on folic acid and B12 [...] answered and refills necessary at visit today. [id number] Ty Sams MD [facility] [place] [address] [address] [place] [address] 05/29/2023 11:09:59 05/29/2023 11:53:39 Essential hypertension 63959768 I10 Pain of bi lateral thighs 9149400777 4529740 M79.651 M79.652 Osteoarthritis 713132333 M19.90 Fibromyalgia 715562797 M 79.7 Screening for malignant neoplasm of breast 578388509 Z12.39 [id number] Ty Sams MD [facility] [address] [place] [address] 08/08/2023 09:30:04 08/08/2023 10:08:16 Hypothyroidism 03975272 E03.9 Fibromyalgia 075037716 M 79.7 Restless legs 91586800 G 25.81 Chronic low back pain 27 3271600 M54.50 Essential hypertension 44183250 I10 Fatigue 73480833 R53.83 Vitamin B1 2 deficiency (non anemic) 29104197 E53.8 Vitamin D deficiency 347 15207 E55.9 [id number] Roni Quinones MD [facility] [place] [address] [place] [address] 11/10/2023 09:20:00 11/10/2023 10:29:33 Burning feet 35307875 E53.9 Chronic low back pain 27 3164818 M54.50 Essential hypertension 36633877 I10 Fibromyalgia 103621840 M 79.7 Hypercalcemia 26037463 E 83.52 Hypothyroidism 30967490 E03.9 Primary hyperparathyroidism 35136574 E21.0 Restless legs 42087473 G 25.81 Vitamin B1 2 deficiency (non anemic) 96705785 E53.8 Vitamin D deficiency 347 91861 E55.9 Adult heal th examination 540746570 Z00.00 Screening for malignant neoplasm of cervix 699956260 Z12.4 [id number] Roni Quinones MD [facility] [place] [facility] [place] [address] 03/25/2024 11:24:24 03/25/2024 12:10:19 Liver enzymes level above reference range 486094230 R74.01 Chronic low back pain 27 7891257 M54.50 Fibromyalgia 385536699 M 79.7 Essential hypertension 59905326 I10 Primary hyperparathyroidism 59315545 E21.0 Vitamin B1 2 deficiency (non anemic) 52751708 E53.8 Vitamin D deficiency 347 99648 E55.9 [id number] oRni Quinones MD [address] [address] [place] [address] 06/25/2024 11:13:17 06/25/2024 12:31:16 Burning feet 56040459 E53.9 Right side sciatica 3202 931103 83400 M54.31 [id number] Roni Quinones MD [facility] [address] [address] 09/23/2024 10:48:33 09/23/2024 11:51:31 Right side sciatica 1295419566 16681 M54.31 Obesity 027485008 E66.9 Health Concerns Section Related Observation LastModified by Organization Detai ls LastModified Time None Recorded Concern Status LastModified by Organization Details LastModified Time None Recorded Advance Directives Directive None Recorded Payers Insurance Date Sequence Insurance Name Policy Number Policy Wyman Covered Member ID Wyman Member ID Guarantor Name 10/07/2024 1 [place] 112 Kushal Krishnan [id number] Reta Krishnan Notes Date Note Type Note Provider Name and Address Organization Details Recorded Time 08/08/2023 text/html needs refills CHIKA Morillo [email or web address], [place], [address], [employer] [facility] [employer] 08/16/2023 15:18:39 11/10/2023 text/html burning in feet , low back pain , throws her off , would like a cane CHIKA Morillo [email or web address], [place], [address], [employer] [facility] [employer] 11/13/2023 11:29:34 03/25/2024 text/html liver enzymes up . CHIKA Morillo [address] [employer], [place], [address], [employer] [facility] 04/18/2024 11:56:53 06/25/2024 text/html right hip , sciatica and arthritis . neuropathy in feet worse. BP at home this morning 138 /78. CHIKA Morillo [email or web address], [place], [address], [employer] [facility] 07/02/2024 15:12:34 09/23/2024 text/html right sciatica acting up CHIKA Morillo [email or web address], [place], [address], [place] - [facility] 10/03/2024 16:30:07 OBGyn Episode No OBEpisode recorded.
--- OUTSIDE RECORDS SUMMARY | 2024-12-24 11:25 | XMS_ITS | Encounter Summary ---
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 Name Role Phone Papo Oleary Primary Care Provider + Encounter Details Date Type Department Care Team (Late Contact Info) Description 05/14/2024 Lamsa Message [facility] Patient Accounts [address] [place] [address] [facility] Action Needed Social History Tobacco Use Types Packs/Day Years Used Date Smoking Tobacco: Never Smokeless Tobacco: Never Alcohol Use Standard Drinks/Week Comments Not Currently 0 (1 standard drink = 0.6 oz pur e alcohol) Comments No Sex and Gender Information Value Date Recorded Sex Assigned at Female 09/15/2023 1:19 PM CDT 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 Gender Identity Female 09/15/2023 1:19 PM CDT Sexual Orientation Straight 09/15/2023 1: 19 PM CDT documented as of this encounter Plan of Treatment Upcoming Encounters Date Type Department Care Team (Late Contact Info) Description 01/02/2025 2:00 PM CDT Office Visit [facility] Medical Group Multispecialty Care - [facility] [address], [address] [place] [phone] Aníbal Paredes MD [address] [place] [address] 03/21/2025 9:00 AM CDT Office Visit [facility] - [place] [address] [place] [phone] Dorina Ramírez MD [address] [place] [address] documented as of this encounter Visit Diagnoses Not on filedocumented in this encounter Care Teams Cutting And Splicing Supervisor Relationship Specialty Start Date End Date Papo Oleary PA [facility] [place] [address] PCP - General PHYSICIAN 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
--- OUTSIDE RECORDS SUMMARY | 2024-12-24 11:25 | XMS_ITS | Encounter Summary ---
Author Organization [facility] Address [address] [place] [address] Care Team Providers Care Chocolate Finisher Name Role Phone Papo Oleary Primary Care Provider + Encounter Details Date Type Department Care Team (Late st Contact Info) Description 05/20/2024 Zangohart Message [facility] [place] [phone] [phone] Ariane Ball MD [facility] [address] [place], [place] [phone] Neck/Upper Back Social History Tobacco Use Types Packs/Day Years Used Date Smoking Tobacco: Never Smokeless Tobacco: Never Alcohol Use Standard Drinks/Week Comments Not Currently 0 (1 standard drink = 0.6 oz pur e alcohol) Comments No Sex and Gender Information Value Date Recorded Sex Assigned at Female 09/15/2023 1:19 PM CDT 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 Gender Identity Female 09/15/2023 1:19 PM CDT Sexual Orientation Straight 09/15/2023 1: 19 PM CDT documented as of this encounter Plan of Treatment Upcoming Encounters Date Type Department Care Team (Late st Contact Info) Description 01/02/2025 2:00 PM CDT Office Visit [facility] Medical Group Multispecialty Care - [facility] [address] [facility], [address] [place] [phone] Aníbal Paredes MD [address] [place] [address] 03/21/2025 9:00 AM CDT Office Visit [facility] [address] [phone] Dorina Ramírez MD [address] [place] [address] documented as of this encounter Visit Diagnoses Not on filedocumented in this encounter Care Teams Chocolate Finisher Relationship Specialty Start Date End Date Papo Oleary PA [facility] [place] [address] PCP - General 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
[2024-12-24 11:45] LABS: Hematocrit 41.3 % (37.0-47.0); Hemoglobin 13.2 g/dL (12.0-15.0); Immature Granulocyte Percent A 0.5 % (0-0.5); Lymphocytes Absolute Auto 1.73 K/mm3 (0.9-3.2); Mean Corpuscular HGB Conc 32.0 g/dl (32-36); Mean Corpuscular Hemoglobin 27.0 pg (26-34); Mean Corpuscular Volume 84.5 fl (80-100); Nucleated Red Blood Cells Absolute Auto 0.000 K/mm3 (0.0-0.012); Nucleated Red Blood Cells Perc 0.0 % (0.0-0.2); Platelet Count Result 260 k/mm3 (150-375); Red Blood Count 4.89 M/mm3 (4.2-5.4); White Blood Count 7.7 K/mm3 (4.5-10.0)
[2024-12-24 12:12] LABS: Alanine Aminotransferase 29 U/L (6-35); Albumin Level 4.2 g/dL (3.5-5.1); Alkaline Phosphatase 69 U/L (38-126); Anion Gap 5 mmol/L (4-12); Aspartate Amino Transferase 27 U/L (14-36); Bilirubin,Total 0.5 mg/dL (0.2-1.3); Blood Urea Nitrogen 16 mg/dL (7-17); Calcium 9.4 mg/dL (8.4-10.2); Carbon Dioxide 32 mmol/L (22-30); Chloride 102 mmol/L (98-107); Estimated Glomerular Filt Rate > 60; Glucose 98 mg/dL (65-110); Potassium 4.1 mmol/L (3.4-5.0); Sodium 139 mmol/L (137-145); Total Protein 7.4 g/dL (6.3-8.2)
== END 2024-12-24 11:05 | disposition home or self-care (01) ==
LOC: ANHLAB 11:07
PROVIDERS: PCP Physician Assistant; Visit Provider Physician Assistant
DX: I10 Essential (primary) hypertension (principal)
CPT/HCPCS: 36415; 80053; 85025

== ENCOUNTER 2024-12-26 10:13 | Outpatient (CLI) | payer BC, SELFPAY ==
--- OUTSIDE RECORDS SUMMARY | 2024-12-26 10:18 | XMS_ITS ---
Author Organization [facility] Address [address] [place], [place] [phone] Care Team Providers Care Soft Hat Binder Name Role Phone Gordy Oleary Primary Care Provider Paige Allison Unavailable [phone] REASON FOR VISIT RE:Hands Encounters Encounter Location Date Provider Diagnosis [facility] [address], [address] [place], [place] [phone] 11/27/2024 Paige Fuchs PLAN OF TREATMENT Next Appt Details Provider Name:Gely Trammell, 0 02/03/2025 10:20:00 AM, [address], [address], [place], [place], [phone],
--- OUTSIDE RECORDS SUMMARY | 2024-12-26 10:18 | XMS_ITS ---
Author Organization [facility] Address [address] [place], [place] [phone] Care Team Providers Care Pole Incisor Operator Name Role Phone Gordy Oleary Primary Care Provider Paige Allison Unavailable [phone] REASON FOR VISIT Hands Encounters Encounter Location Date Provider Diagnosis [facility] [address], [address] [place], [place] [phone] 11/25/2024 Paige Fuchs PLAN OF TREATMENT Next Appt Details Provider Name:Gely Trammell, 0 02/03/2025 10:20:00 AM, [address], [address], [place], [place], [phone],
--- OUTSIDE RECORDS SUMMARY | 2024-12-26 10:18 | XMS_ITS | Patient Health Record ---
Author Organization [facility] Address [address] [place], [place] [phone] Care Team Providers Care Information Technology Analyst Name Role Phone Gordy Oleary Primary Care Provider Paige Allison Unavailable [phone] Gely Trammell Unavailable [phone] ALLERGIES No Known Allergies RESULTS Component Value Reference Range Notes AST (SGOT) Reviewed date:02/06/2024 10:42:13 AM Interpretation: Performing Lab:[employer] [facility], Phone - [phone], [facility] Notes/Report: AST (SGOT) 28 0-40 IU/L Creatinine, Serum Reviewed date:02/06/2024 10:42:13 AM Interpretation: Performing Lab:[employer] [facility], Phone - [phone], Director [facility] Notes/Report: Creatinine 0.71 0.57-1.00 mg/dL eGFR 100 >59 mL/min/1.73 ALT (SGPT) Reviewed date:02/06/2024 10:42:13 AM Interpretation: Performing [facility], Phone - [phone], [facility] Notes/Report: ALT (SGPT) 42 0-32 IU/L CBC With Differential/Platel et Reviewed date:02/06/2024 10:42:13 AM Interpretation: Performing [facility], Phone - [phone], [facility] Notes/Report: WBC 6.0 3.4-10.8 x10E3/uL RBC 4.85 [...] (SGOT) Reviewed date:08/06/2024 07:35:11 AM Interpretation: Performing Lab:[facility] [place], [address] [place] [address], Phone - [phone], [facility] Notes/Report: AST (SGOT) 16 0-40 IU/L Creatinine, Serum Reviewed date:08/06/2024 07:35:11 AM Interpretation: Performing Lab[facility], [address] [place] [address], Phone - [phone], Director [facility] Notes/Report: Creatinine 0.65 0.57-1.00 mg/dL eGFR 103 >59 mL/min/1.73 ALT (SGPT) Reviewed date:08/06/2024 07:35:11 AM Interpretation: Performing Lab:[facility], [address] [facility], Phone - [phone], Director - [place] Notes/Report: ALT (SGPT) 24 0-32 IU/L CBC With Differential/Platel et Reviewed date:08/06/2024 07:35:11 AM Interpretation: Performing Lab:[facility] [place], [address], [place], Phone - [phone], Director - [place] Notes/Report: WBC 8.3 3.4-10.8 [...] Status Risk SNOMED Code Notes Problem 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 (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) drug therapy (Z79.899) Active confirmed 785577045 Problem Vitamin D deficiency (E55.9) Active confirmed Vitamin D deficiency (66658834) Problem Fibromyalgia (M79.7) Active confirmed 420413888 Problem Primary generalized (osteo)arthritis (M15.0) Active confirmed 963734326 Problem Never smoked cigarettes (Z78.9) Active confirmed 774962749 Problem Degenerative disc disease, lumbar (M51.36) Active confirmed 28113663 Problem 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 [address] [place] [phone] 02/05/2024 [facility] Primary generalized (osteo)arthritis M15.0 ; Pain, joint, knee, right M25.561 ; Pain, joint, knee, left M25.562 ; 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 (current) drug therapy Z79.899 ; Fibromyalgia M79.7 ; Vitamin D deficiency E55.9 ; Fatigue, unspecified type R53.83 and Lee's thyroiditis E06.3 [facility] [address] [place] [phone] 08/05/2024 [facility] Primary generalized (osteo)arthritis M15.0 ; Pain, joint, knee, right M25.561 ; Pain, joint, knee, left M25.562 ; 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 (current) drug therapy Z79.899 ; Fibromyalgia M79.7 ; Vitamin D deficiency E55.9 ; Fatigue, unspecified type R53.83 and Lee's thyroiditis E06.3 [facility] [address] [place] [phone] 02/06/2024 Paige Fuchs [facility] [address] [place] [phone] 11/25/2024 Paige Fuchs [facility]. [address] [place] [phone] 11/27/2024 Paige Fuchs ASSESSMENTS Encounter Date Diagnosis [...] injections again today. Check labs. 02/05/2024 Other [facility] (current) drug therapy (ICD-10 - Z79.899) Cont [...] injections again today. Check labs. 08/05/2024 Other [facility] (current) drug therapy (ICD-10 - Z79.899) Cont [...] (SGOT) 08/02/2021 Creatinine, Serum 05/23/2022 ALT (SGPT) 08/02/2021 ALT (SGPT) 05/23/2022 CBC With Differential/Platelet Sed Rate - Westergren 05/23/2022 C-Reactive Protein, Quant 05/23/2022 VITAMIN D, 25-HYDROXY, LC/MS/MS 05/23/20 22 Joint Injection - knee, left 08/23/2023 Joint Injection - knee, left 02/05/2024 X ray : Hand left- outside order 018 X ray : Hand right- outside order 2017 Joint Injection - knee, right 02/05/2024 Joint Injection - knee, right 08/05/2024 Joint Injection - knee, right 08/23/2023 Joint Injection - knee, right 05/23/2018 Inj-Toradol 05/23/2022 X ray : Knee, right [...] 10:20:00 AM, [address] 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
--- OUTSIDE RECORDS SUMMARY | 2024-12-26 10:18 | XMS_ITS ---
Author Organization [facility] Address [address] [place], [place] [phone] Care Team Providers Care Validation Software Facilitator Name Role Phone Gordy Oleary Primary Care Provider Paige Allison Unavailable [phone] FaGely em Unavailable [phone] ALLERGIES No Known Allergies RESULTS Component Value Reference Range Notes AST (SGOT) Reviewed date:08/06/2024 07:35:11 AM Interpretation: Performing Lab:[employer] [facility], Phone - [phone], Director - [facility] Notes/Report: AST (SGOT) 16 0-40 IU/L Creatinine, Serum Reviewed date:08/06/2024 07:35:11 AM Interpretation: Performing Lab:[employer] [facility], Phone - [phone], [facility] Notes/Report: Creatinine 0.65 0.57-1.00 mg/dL eGFR 103 >59 mL/min/1.73 ALT (SGPT) Reviewed date:08/06/2024 07:35:11 AM Interpretation: Performing Lab:[employer] [facility], Phone - [phone], Director - [facility] Notes/Report: ALT (SGPT) 24 0-32 IU/L CBC With Differential/Platel et Reviewed date:08/06/2024 07:35:11 AM Interpretation: Performing Lab:[facility], Phone - [phone], Director - [place] Notes/Report: WBC 8.3 3.4-10.8 [...] Location Date Provider Diagnosis [facility] [address] [place] [address], [address] [place], [place] [phone] 08/05/2024 Gely Trammell Primary generalized (osteo)arthritis M15.0 ; Pain, joint, knee, right M25.561 ; Pain, joint, knee, left M25.562 ; Other group home (current) drug therapy Z79.899 ; Fibromyalgia M79.7 [...] injections again today. Check labs. 08/05/2024 Other group home (current) drug therapy (ICD-10 - Z79.899) Cont [...] Name:Gely Trammell, 0 02/03/2025 10:20:00 AM, [address], [place], [place], [phone], Procedure Notes * Category Sub-Category Detail Notes Injection Site right , knee Drug Injected Xylocaine [facility]: 57331 -485-57 lot # [id number] exp: 08/07 , Triamcinalone Acetonide [facility] [id number] EXP: 2024-08 Dose 2mL , 20 mg [...]
--- OUTSIDE RECORDS SUMMARY | 2024-12-26 10:18 | XMS_ITS | Clinical Summary ---
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
--- OUTSIDE RECORDS SUMMARY | 2024-12-26 10:19 | XMS_ITS | Data Portability ---
Author Organization [place] [facility] [employer], Main Office Address [address] [place] [address] Assessment No assessment recorded. Plan of Treatment [...] 2023 024 [email or web address] Priscilla Colmenares DO, [address] [facility], [place], [address], 4 08:36:46 Procedures None recorded. Surgeries None recorded. Imaging US, liver 2023 024 [facility], [facility], [employer] , [place], [address], 4 11:05:53 Medication Orders Zepbound 2.5 mg/0.5 mL subcutaneou s pen injector 2024 025 [facility] 436, [address] [place] [address], [address], 5 11:30:00 Depo-Medrol 80 mg/mL suspension for injection 2024 025 [email or web address] 4 Not available 5 11:57:36 prednisone 20 mg tablet 2024 025 [facility] 436, [address] [place] [address], [address], 5 11:26:29 gabapentin 300 mg capsule 2024 025 [facility] 436, [address] [place] [address], [address], 5 11:50:30 Depo-Medrol 80 mg/mL suspension for injection 2024 025 [email or web address] 4 Not available 5 11:05:04 prednisone 20 mg tablet [email or web address] [facility] 436, [address] [place] [address], [address], 5 11:05:12 Nucynta ER 50 mg tablet,exte nded release 2023 024 [facility] 436, [address] [place] [address], [address], 4 12:01:38 gabapentin 300 mg capsule 2023 024 [facility] 436, [address] [place] [address], [address], 4 10:13:26 hydrochloro thiazide 12.5 mg capsule 2023 024 [facility] 436, [address] [place] [address], [address], 4 10:18:34 losartan 25 mg tablet 2023 024 [facility] 436, [address] [place] [address], [address], 4 10:18:33 pramipexole 0.125 mg tablet 2023 024 [facility] 436, [address] [place], [address], 4 10:06:26 levothyroxi ne 100 mcg tablet 2023 024 [facility] 436, [address] [place] [address], [address], 4 10:03:21 Patient TargetsNo targets recorded. Patient Instructions Encounter Date Encounter Id Patient Instructions Last Modified By Organization Details Last Modified Time 03/25/2024 [id number] recheck BP at home , let us know if still high, usually normal at home [email or web address] Not available 04/18/2024 11:55:57 06/25/2024 [id number] recheck BP at home , she will call us if it is high ; it is always normal at home [email or web address] Not available 07/02/2024 15:07:49 09/23/2024 [id number] reviewed salty foods to avoid . 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 Please call patient to schedule an appointment. Thank you Referring Physician: Papo Oleary, Family Medicine, Encounter Date: 11/10/2023 Results Created Date Observation Date Name Description Value Unit Range Abnormal Flag Note LastModifiedBy Organization Detail LastModifiedTime 04/02/2004/02/2024 US, liver No observ ation record ed. [facility] [address] [place], [address], 05/17/2024 10:36:24 09/06/19 25 09/04/2024 imagi ng/di agnos tic resul t No observ ation record ed. [facility] [address] [address] [facility] [address], [place], [address], 09/05/2024 08:55:24 Result Notes None recorded. Problems Name Problem SNOMED Code Status Onset Date Resolution Date Notes Provider Name and Address Organization Details Recorded Time Diverticu litis of colon 864901827 Active Not Available [facility] 3 00:27:32 Acute sinusitis 90130450 Active Not Available [facility] 3 00:27:32 Increased blood pressure 29085839 Active Not Available [facility] 3 00:27:32 Acute sciatica 379821645 Active Not Available [employer] 3 00:27:32 Vitamin D deficienc y 41135383 Active Not Available [facility] 3 00:27:32 Sinusitis 88336113 Active Not Available [facility] 3 00:27:32 Hypothyro idism 72594083 Active Not Available [facility] 3 00:27:32 Muscle pain 06858518 Active Not Available [facility] 3 00:27:32 Current tear of medial cartilage AND/OR meniscus of knee Active 2018 Not Available [facility] 3 00:27:32 Knee pain Completed 201803/19/2019 Not Available [facility] 3 04:44:53 Knee pain Active 2018 Not Available [facility] 3 00:27:32 Thyroid nodule 368632896 Active 2021 Not Available [facility] 3 00:27:32 Essential hypertens ion 64910834 Active 2021 Not Available [facility] 3 00:27:32 Vitamin B12 deficienc y (non anemic) 86442730 Active 2021 Not Available [employer] 3 00:27:32 Hypercalc emia 66931773 Active 2021 Not Available [facility] 3 00:27:32 Fatigue 10276809 Active 2021 Not Available [facility] 3 00:27:32 Menopause Active 2022 Not Available [facility] 3 00:27:32 Weight gain 3292085 Active 2022 Not Available [employer] 3 00:27:32 Chronic low back pain 315252310 Active 2022 Not Available [employer] 3 00:27:32 Restless legs 89882022 Active 2022 Not Available [facility] 3 00:27:32 Primary hyperpara thyroidis m 59901034 Active 2022 Ariella Segovia MD [address], [address], [place], [address] , [place] [facility] 3 13:14:02 Pain of bilateral thighs 43647407460 796661 Active 2022 CHIKA Morillo [address], [address], [place], [address] , [place] [facility] 3 11:43:54 Fibromyal moriah 343169917 Active 2022 CHIKA Morillo [address], [address], [place], [address] , [place] [facility] 3 11:47:41 Screening for malignant neoplasm of breast Active 2022 CHIKA Morillo [address], [address], [place], [address] , [place] [facility] 3 11:51:43 Burning feet 11837665 Active 2023 CHIKA Morillo [address], [address], [place], [address] , [place] [facility] 4 10:12:16 Adult health examinati on Active 2023 CHIKA Morillo [address], [address], [place], [address] , [place] [facility] 4 10:21:23 Screening for malignant neoplasm of cervix Active 2023 CHIKA Morillo [address], [address], [place], [address] , [place] [facility] 4 10:24:20 Liver enzymes level above reference range 249167488 Active 2023 CHIKA Morillo [address], [address], [place], [address] , [facility] [employer] [facility] [employer] [facility] 4 11:58:44 Right side sciatica 97938748773 9101 Active 2024 CHIKA Morillo [address], [address], [place], [address] , [employer] [facility] [employer] [facility] 5 11:51:18 Obesity 832403387 Active 2024 CHKIA Morillo [address], [address], [place], [address] , [facility] [facility] [employer] [facility] 5 11:28:06 Problem Notes None recorded. Procedures Surgical History Date Name Laterality Status Provider Name and Address Organization Details Recorded Time 05/29/20 23 mammography completed Leticia Graf RN [facility] [employer] [facility] 06/22/2023 12:31:59 Elbow arthroscopy/corby radha completed Not Available [facility] 08/10/2022 04:41:02 Cyst Removal completed [facility] Available [facility] 04:41:02 Carpal tunnel completed Not Available [facility] 08/10/2022 04:41:02 Knee completed Not Available [facility] 06/2022 04:41:02 Imaging Results None recorded. Procedure [...] administ ered by the provider 09/01 completed [facility]: [id number] 4-20 Not Available Not Available Not [...] administ ered by the provider 09/01 completed [facility]: [phone] 6-17 Not Available Not Available Not [...] Updated DateTime 5 160.02 cm 44 kg/m2 834698. 63 g 98.7 [degF] 97 % 97 % 68 /min 132/92 mm[Hg] AB Sepulveda - [place] [employer] 5 11:37:53 Date Recorded Body height Body mass index (BMI) Body weight Heart rate Oxygen saturation Oxygen saturation in Arterial blood by Pulse oximetry Respiratory rate Body temperature Systolic And Diastolic Provider Name and Address Organization Details Last Updated DateTime 4 160.02 cm 43.4 kg/m2 200661. 13 g 66 /min 99 % 99 % 16 /min 97.3 [degF] 126/86 mm[Hg] Paige Harris RN [facility] [employer] [facility] 4 09:40:24 Date Recorded Body height Body mass index (BMI) Body weight Body temperature Oxygen saturation Oxygen saturation in Arterial blood by Pulse oximetry Heart rate Systolic And Diastolic Provider Name and Address Organization Details Last Updated DateTime 5 160.02 cm 44.8 kg/m2 492048. 87 g 97 [degF] 96 % 96 % 86 /min 128/94 mm[Hg] Elvia Reyes [facility] [employer] [facility] 5 11:07:20 Date Recorded Body height Body mass index (BMI) Body weight Body temperature Respiratory rate Heart rate Oxygen saturation Oxygen saturation in Arterial blood by Pulse oximetry Systolic And Diastolic Provider Name and Address Organization Details Last Updated DateTime 4 160.02 cm 42 kg/m2 125347. 39 g 98.1 [degF] 16 /min 52 /min 98 % 98 % 134/92 mm[Hg] Cony Linder RN [facility] [employer] [facility] 4 09:42:50 Date Recorded Body height Body mass index (BMI) Body weight Body temperature Heart rate Oxygen saturation Oxygen saturation in Arterial blood by Pulse oximetry Systolic And Diastolic Provider Name and Address Organization Details Last Updated DateTime 4 160.02 cm 42.7 kg/m2 061520. 76 g 98 [degF] 105 /min 99 % 99 % 160/110 mm[Hg] Cony Linder RN [facility] [employer] [facility] 4 11:35:22 Social History Question Answer Notes LastModified by Organizat ion Details LastModified Time Tobacco Smoking Status Never Smoker Leticia Graf RN [facility], [facility] [employer] [facility] 05/29/2023 11:11:54 What Is Your Level Of Caffeine Consumption? Moderate [id number] Information not available 08/10/2022 In The 14 Days Before Symptom Onset, Have You Had Close Contact With A Laboratory-confirm ed COVID-19 While That Case Was Ill? No [email or web address] Information n ot available 05/29/2023 In The 14 Days Before Symptom Onset, Have You Had Close Contact With A Person Who Is Under Investigation For COVID-19 While That Person Was Ill? No Information not available 05/29/2023 What Type Of Diet Are You Following? REGULAR [id number] Information not available 08/10/2022 What Is The Highest Grade Or Level Of School You Have Completed Or The Highest Degree You Have Received? [id number] [email or web address] Information not available 05/29/2023 What Was The Date Of Your Most Recent Tobacco Screening? 10/27/2020 [email or web address] Information not available 05/29/2023 Have You Ever Been Counseled For Unhealthy Alcohol Use? No [email or web address] Information not available 05/29/2023 What Is Your Relationship Status? [id number] Information not available 08/10/2022 Have You Recently Traveled Abroad? No [email or web address] Information not available 05/29/2023 Do You Have Any Dietary Restrictions? No [email or web address] Information not available 05/29/2023 Sex: Female Functional Status Question Answer Note LastModified by Organizat ion Details LastModified Time Do you use any illicit or recreational drugs? No [email or web address] Information not available 05/29/2023 What is your level of alcohol consumption? Occasional [id number] Information not available 08/10/2022 Mental Status None recorded. Family History Relationship Description Onset Age of this Age Resolved Age Notes LastModified by Organization Details LastModified Time Mother Family history of malignant neoplasm breast [id number] Not available 08/10/2022 04:41:02 Mother Malignant neoplasm of ovary [id number].771 [id number] Not available 08/10/2022 04:41:02 Father Arthritis MIGRATION.450 [id number] Not available 08/10/2022 04:41:02 Father Congestive heart failure [email or web address].553 [id number] Not available 08/10/2022 04:41:02 Sister Family history of malignant neoplasm MIGRATION.732 [id number] Not available 08/10/2022 04:41:03 Sister Hypothyroidi sm MIGRATION.853 [id number] Not available 08/10/2022 04:41:03 Sister Fibromyalgia MIGRATION.0 30 [id number] Not available 08/10/2022 04:41:03 Daughter Hypothyroidi sm MIGRATION.859 [id number] Not available 08/10/2022 04:41:03 Daughter Lupus erythematosu s MIGRATION.158 [id number] Not available 08/10/2022 04:41:03 Medical History Condition Response ARTHRITIS Y HYPOTHYROIDISM Y Gynecological HistoryNo gynecological history recorded. Obstetrics History GPAL:G 0 P 0 0 0 0 Past Encounters Encounter ID Performer Location Encounter Start Date Encounter Closed Date Diagnosis/Indication Diagnosis SNOMED-CT Code Diagnosis ICD10 Code Diagnosis Note [id number] Ty Sams MD [facility] [place] [address], [place] [address] 09/01/2020 00:00:00 09/02/2020 06:56:58 [id number] Ty Sams MD [facility] [place] [address] [place] [address] 10/23/2020 00:00:00 10/24/2020 12:17:14 [id number] Juan Jose Melendez MD [facility] [place] [address] [place] [address] 10/27/2020 00:00:00 10/27/2020 11:38:04 [id number] Ty Sams MD [facility] [place] [address] [place] [address] 01/12/2021 00:00:00 01/13/2021 06:32:59 [id number] Juan Jose Melendez MD [facility] [place] [address] [place] [address] 01/26/2021 00:00:00 01/26/2021 11:05:20 [id number] Ty Sams MD [facility] [place] [address] [place] [place] [address] 01/28/2021 00:00:00 01/28/2021 12:08:22 [id number] Ty Sams MD [facility] [place] [address] [place] [place] [address] 03/05/2021 00:00:00 03/07/2021 13:47:12 [id number] Ariella Segovia MD [facility] [place] [address] [place] [address] 03/12/2021 00:00:00 03/12/2021 18:13:15 [id number] [facility] [address] [facility] [place] [address] [place] [address] 05/17/2021 00:00:00 05/17/2021 13:35:27 [id number] [facility] [place] [address] [place] [address] 08/23/2021 00:00:00 08/23/2021 15:44:13 [id number] [facility] [address] [facility] [place] [address] 12/01/2021 00:00:00 12/01/2021 20:06:32 [id number] [facility] [place] [address] [place] [address] 12/06/2021 00:00:00 12/06/2021 10:19:54 [id number] [facility] [place] [address] [place] [address] 10/14/2022 11:20:21 10/14/2022 12:02:31 Hypothyroidism 83561624 E03.9 Thyroid levels in range- continue synthroid [...] and minerals and reduce inflammati on. Hypercalcemia 63789893 E 83.52 We have obtained labwork in the past and her SPEP/immun ofixation were normal- this may be due to hctz but due to bone pain will send for repeat parathyroi d panel, vit D and bone density scan to assess for bone loss. Menopause 953611867 N95. 1 send for bone density to assess for bone loss. Weight gain 4301489 R63. 5 Will send for low dose [...] she chooses to go outside of the [facility] system to obtain labwork she was [...] in her case. She voiced understand ing. [id number] Ty Sams MD [facility] Family Practice aMlvin [address] , [place] [address] 10/28/2022 10:15:14 10/28/2022 11:01:44 Chronic low back pain 520559412 M54.50 Continue celebrex may increase to BID and use nucynta as needed. Restless legs 53606586 G 25.81 [id number] Ariella Segovia MD [facility] [place] [address] [place] [address] 03/21/2023 12:29:08 03/21/2023 14:31:57 Hypothyroidism 77175678 E03.9 Thyroid levels in range with low [...] minerals and reduce inflammati on. Primary hyperparathyroidism 43495254 E21.0 Refer to endocrinol ogy- her calcium is mildly elevated and PTH not suppressed highly suggestive of hyperparat hyroidism. She does have fatigue, imbalance issues and mild hypertensi on would be worth working up for potential parathyroi dectomy. Vitamin B1 2 deficiency (non anemic) 26718945 E53.8 Continue on folic acid and B12 [...] answered and refills necessary at visit today. [id number] Ty Sams MD [facility] [address] [address] [place] [address] 05/29/2023 11:09:59 05/29/2023 11:53:39 Essential hypertension 69692073 I10 Pain of bi lateral thighs 6886551571 3255763 M79.651 M79.652 Osteoarthritis 908799698 M19.90 Fibromyalgia 255939491 M 79.7 Screening for malignant neoplasm of breast 496284217 Z12.39 [id number] Ty Sams MD [facility] [address] [address] 08/08/2023 09:30:04 08/08/2023 10:08:16 Hypothyroidism 78353228 E03.9 Fibromyalgia 715300616 M 79.7 Restless legs 89280573 G 25.81 Chronic low back pain 27 2574493 M54.50 Essential hypertension 22039124 I10 Fatigue 56085718 R53.83 Vitamin B1 2 deficiency (non anemic) 43564170 E53.8 Vitamin D deficiency 347 56386 E55.9 [id number] Roni Quinones MD [facility] [place] [address] [place] [address] 11/10/2023 09:20:00 11/10/2023 10:29:33 Burning feet 29546699 E53.9 Chronic low back pain 27 1008992 M54.50 Essential hypertension 40101796 I10 Fibromyalgia 459784687 M 79.7 Hypercalcemia 09506850 E 83.52 Hypothyroidism 69764473 E03.9 Primary hyperparathyroidism 83340419 E21.0 Restless legs 82910011 G 25.81 Vitamin B1 2 deficiency (non anemic) 49884162 E53.8 Vitamin D deficiency 347 61488 E55.9 Adult heal th examination 774982693 Z00.00 Screening for malignant neoplasm of cervix 892998652 Z12.4 [id number] Roni Quinones MD [facility] [place] [employer] [address] [place] [address] 03/25/2024 11:24:24 03/25/2024 12:10:19 Liver enzymes level above reference range 363839099 R74.01 Chronic low back pain 27 9746244 M54.50 Fibromyalgia 319993479 M 79.7 Essential hypertension 51686587 I10 Primary hyperparathyroidism 54390468 E21.0 Vitamin B1 2 deficiency (non anemic) 54232683 E53.8 Vitamin D deficiency 347 56704 E55.9 [id number] Roni Quinones MD [place] [address] [place] [address] 06/25/2024 11:13:17 06/25/2024 12:31:16 Burning feet 45291653 E53.9 Right side sciatica 3202 528003 53835 M54.31 [id number] Roni Quinones MD [facility] [address] [address] 09/23/2024 10:48:33 09/23/2024 11:51:31 Right side sciatica 0712363650 16756 M54.31 Obesity 306435516 E66.9 Health Concerns Section Related Observation LastModified by Organization Detai ls LastModified Time None Recorded Concern Status LastModified by Organization Details LastModified Time None Recorded Advance Directives Directive None Recorded Payers Insurance Date Sequence Insurance Name Policy Number Policy Wyman Covered Member ID Wyman Member ID Guarantor Name 10/07/2024 1 [place] 112 Kushal Krishnan [id number] Reta Krishnan Notes Date Note Type Note Provider Name and Address Organization Details Recorded Time 08/08/2023 text/html needs refills CHIKA Morillo [address] [employer], [place], [address], [employer] [facility] [email or web address] 08/16/2023 15:18:39 11/10/2023 text/html burning in feet , low back pain , throws her off , would like a cane CHIKA Morillo [address] [employer], [place], [address], [employer] [facility] [email or web address] 11/13/2023 11:29:34 03/25/2024 text/html liver enzymes up . CHIKA Morillo [address], [place], [address], [employer] [facility] [employer] 04/18/2024 11:56:53 06/25/2024 text/html right hip , sciatica and arthritis . neuropathy in feet worse. BP at home this morning 138 /78. CHIKA Morillo [address] [employer], [place], [address], [employer] [facility] [employer] 07/02/2024 15:12:34 09/23/2024 text/html right sciatica acting up CHIKA Morillo [address] [employer], [place], [address], [place] [facility] 10/03/2024 16:30:07 OBGyn Episode No OBEpisode recorded.
[2024-12-26 11:44] LABS: Thyroid Stimulating Hormone 3.710 uIU/mL (0.465-4.680)
== END 2024-12-26 10:14 | disposition home or self-care (01) ==
LOC: ANHLAB 10:15
PROVIDERS: PCP Physician Assistant; Visit Provider Internal Medicine
DX: E55.9 Vitamin D deficiency, unspecified (principal); R53.83 Other fatigue; E03.9 Hypothyroidism, unspecified; E53.8 Deficiency of other specified B group vitamins
CPT/HCPCS: 36415; 84443; 86376